=== PATIENT | male | born 1950 | race Caucasian/White ===

== ENCOUNTER 2019-02-21 14:54 | Emergency (ER) | payer OTHER ==
[2019-02-21] MEDS ORDERED: KETOROLAC TROMETHAMINE INJ 30 MG/ML VIAL IM ONE (15:26)
--- NOTE | 2019-02-21 16:02 | CT ---
EXAM DESCRIPTION: Abdoment/Pelvis w/o Contrast CLINICAL HISTORY: 68 years Male, rt lower flank pain 1 month COMPARISON: None. TECHNIQUE: CT of the abdomen and pelvis acquired without IV contrast material. Coronal and sagittal reformations provided. This exam was performed according to our departmental dose-optimization program, which includes automated exposure control, adjustment of the mA and/or kV according to patient size and/or use of iterative reconstruction technique. FINDINGS: Lung bases: Enlarged heart. Trace pericardial effusion anteriorly. Mild dependent atelectasis. Limited evaluation of the solid organs secondary to the lack of intravenous contrast. Solid Organs: Hypoattenuation of the liver. Unremarkable spleen, pancreas, gallbladder, and adrenal glands. Right renal cysts measuring 2.8 cm. Bilateral millimetric calcifications. No hydronephroureter. GI tract: Normal stomach. No small bowel obstruction. Scattered diverticula without pericolonic inflammation. Mild colonic stool. Normal appendix. Vascular: Mild atherosclerosis. Musculoskeletal and soft tissues: No acute fracture or aggressive appearing osseous lesion. Small fat-containing umbilical hernia. Urinary bladder: 4 mm stone in the dependent urinary bladder. Prostate: Normal. Other: None. IMPRESSION: 1. Bilateral nonobstructing renal stones. 2. 4 mm stone in the dependent urinary bladder. This likely represents recently passed renal stone. No hydronephroureter. 2. Diverticulosis. 5. Hepatic steatosis. Electronically signed by: Richard Iglesias MD 02/21/2019 4:00 PM CDT
--- NOTE | 2019-02-21 17:34 | ED.PDOC ---
History of Present Illness - General Chief Complaint: Back Pain or Injury Stated Complaint: right lower back/flank pain Time Seen by Provider: 02/21/19 15:26 Source: patient Exam Limitations: no limitations - History of Present Illness Initial Comments: The patient is a 68-year-old male presenting to emergency room secondary to right flank pain. It is worse with movement and palpation. He has had the pain for about 3 weeks but it got significantly worse this morning and is now a little bit better. No definite urinary symptoms. He reports that it feels exactly like it did when he had a kidney stone on the other side more than 10 years ago. No blood in the urine. no fever. He has had some constipation. No recent trauma. He does have some muscle spasm adjacent to L4-S1 on the right. No definite sciatica. No pain over the spinous processes.he did get diaphoretic and nauseated this morning when the pain was at its worst. Timing/Duration: other - 3 weeks Severity: severe Improving Factors: immobilization Worsening Factors: movement Associated Symptoms: denies symptoms Allergies/Adverse Reactions: Allergies Morphine Allergy (Verified 02/21/19 15:22) Home Medications: Ambulatory Orders Cyclobenzaprine HCl [Flexeril] 5 mg PO TID PRN #30 tab 02/21/19 Tramadol HCl 50 mg PO Q8HR PRN #20 tab 02/21/19 predniSONE [Prednisone] 20 mg PO DAILY #3 tab 02/21/19 Review of Systems - Review of Systems Constitutional: States: no symptoms reported EENTM: States: no symptoms reported Respiratory: States: no symptoms reported Cardiology: States: no symptoms reported Gastrointestinal/Abdominal: States: constipation Genitourinary: States: no symptoms reported Musculoskeletal: States: back pain Skin: States: no symptoms reported Neurological: States: no symptoms reported Endocrine: States: excessive sweating - this morning when the pain was at its worst All other Systems: No Change from Baseline Past Medical History (General) - Patient Medical History Hx Stroke: No Hx Congestive Heart Failure: No Hx Hypertension: Yes Hx Diabetes: Yes - Vaccination History Hx Influenza Vaccination: Yes Hx Pneumococcal Vaccination: Yes - Social History Hx Tobacco Use: No Family Medical History - Family History Father Family History: Unknown Living Status: Unknown Physical Exam - Physical Exam General Appearance: Alert, Other - uncomfortable Eye Exam: bilateral normal Ears, Nose, Throat: normal pharynx Respiratory: lungs clear, normal breath sounds, no respiratory distress, no accessory muscle use Cardiovascular/Chest: normal peripheral pulses, no edema, other - egular rate Peripheral Pulses: radial,right: 2+, radial,left: 2+ Gastrointestinal/Abdominal: non tender - obese, soft Rectal Exam: deferred Back Exam: no vertebral tenderness, CVA tenderness (R) - ee history of present illness Extremity: normal range of motion, non-tender, no calf tenderness, normal capi llary refill 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 There is definitely a musculoskeletal component as there is tenderness to palpation and some obvious muscle spasm. For this he is going to placed on 3 days of prednisone and will be written for a muscle relaxer and some tramadol for as needed use. He can also take Aleve 2 tablets twice a day for the next few days as well. He does need to do some stretches. He needs to keep himself well-hydrated. It is also possible that the patient may have just passed a kidney stone giving him some of the symptoms over the last few weeks. There was a 4 mm stone in the bladder that could correspond to that. No evidence of infection in the urine. no evidence of any current obstruction in the urinary tract. The patient needs to follow back up with his primary care doctor next week. ER warnings are given for any significant worsening. A heat pad may also prove beneficial. merary dotson [id number] - Results/Orders Results/Orders: CT scan of abdomen and pelvis shows mild cardiomegaly. No evidence of any acute infectious process. The patient has a 4 mm dependent stone in the bladder that could have recently passed into the bladder. No diverticulitis. No perinephric abscess. No obvious fractures seen. No acute pathology otherwise.He does have a fatty liver and some smaller renal cysts. See report for details. Laboratory Tests 02/21/19 15:30 Urine Color Yellow Urine Appearance Clear Urine pH 5.5 Ur Specific Melvin 1.025 Urine Protein Trace Urine Glucose (UA) Negative Urine Ketones Negative Urine Blood Negative Urine Nitrite Negative Urine Bilirubin Negative Urine Urobilinogen 0.2 Ur Leukocyte Esterase Negative Urine RBC 0-1 Urine WBC 0-1 Ur Epithelial Cells 0-1 Amorphous Sediment 1+ Urine Bacteria 0 Departure - Departure Clinical Impression: Low back pain Qualifiers: Chronicity: acute Back pain laterality: right Sciatica presence: without sciatica Qualified Code(s): M54.5 - Low back pain Disposition: Discharge to Home or Self Care Condition: Fair Departure Forms: ED Discharge - Pt. Copy, Patient Portal Self Enrollment Diet: regular diet Activity: increase activity as tolerated Prescriptions: Tramadol HCl 50 mg PO Q8HR PRN #20 tab PRN Reason: Moderate Pain Cyclobenzaprine HCl [Flexeril] 5 mg PO TID PRN #30 tab PRN Reason: Muscle Spasms predniSONE [Prednisone] 20 mg PO DAILY #3 tab Home Medications: Ambulatory Orders Cyclobenzaprine HCl [Flexeril] 5 mg PO TID PRN #30 tab 02/21/19 Tramadol HCl 50 mg PO Q8HR PRN #20 tab 02/21/19 predniSONE [Prednisone] 20 mg PO DAILY #3 tab 02/21/19 Additional Instructions: the patient is a 68-year-old male presenting with right lower flank pain present for the last several weeks but worse today. There is definitely a musculoskeletal component as there is tenderness to palpation and some obvious muscle spasm. For this he is going to placed on 3 days of prednisone and will be written for a muscle relaxer and some tramadol for as needed use. He can also take Aleve 2 tablets twice a day for the next few days as well. He does need to do some stretches. He needs to keep himself well-hydrated. It is also possible that the patient may have just passed a kidney stone giving him some of the symptoms over the last few weeks. There was a 4 mm stone in the bladder that could correspond to that. No evidence of infection in the urine. no evidence of any current obstruction in the urinary tract. The patient needs to follow back up with his primary care doctor next week. ER warnings are given for any significant worsening. A heat pad may also prove beneficial.
[2019-02-21] MEDS ORDERED: predniSONE 20 MG TAB PO ONE (17:44)
[2019-02-21] MEDS ORDERED: CYCLOBENZAPRINE HCL 10 MG TAB PO ONE (17:44)
[2019-02-21 18:03] VITALS: BP 92/78; TEMP 96.7; O2SAT 96
== END 2019-02-21 17:57 | disposition home or self-care (01) ==
LOC: ER 14:54
DX: M54.5 Low back pain (principal); R10.9 Unspecified abdominal pain; N21.0 Calculus in bladder; E11.9 Type 2 diabetes mellitus without complications; I10 Essential (primary) hypertension; Z88.5 Allergy status to narcotic agent
CPT/HCPCS: 74176; 81001; J1885; J7512

== ENCOUNTER 2020-03-03 13:50 | Inpatient (IN) | payer OTHER ==
--- NOTE | 2020-03-03 14:58 | ED.PDOC ---
History of Present Illness - General Chief Complaint: Trauma Stated Complaint: shoulder pain Time Seen by Provider: 03/03/20 14:38 Source: patient, RN notes reviewed, Vital Signs reviewed, family - daughter Exam Limitations: no limitations - History of Present Illness Initial Comments: Patient is a 69-year-old white male who presents status post fall yesterday with complaints of right shoulder and chest pain. Additionally, patient is complaining of left lower extremity redness, blistering and weeping. The shoulder pain is stabbing in nature. Worse with movement. No worsening pain with deep inspiration. There is no radiation of the pain. Patient's pain in the left lower leg is throbbing in nature, constant, moderate intensity worse with palpation and movement. Timing/Duration: other - 2 to 3 days Severity: moderate Improving Factors: rest Worsening Factors: movement Associated Symptoms: denies symptoms Allergies/Adverse Reactions: Allergies Morphine Allergy (Verified 03/03/20 15:11) Home Medications: Ambulatory Orders Cyclobenzaprine HCl [Flexeril] 5 mg PO TID PRN #30 tab 02/21/19 Tramadol HCl 50 mg PO Q8HR PRN #20 tab 02/21/19 predniSONE [Prednisone] 20 mg PO DAILY #3 tab 02/21/19 Review of Systems - Review of Systems Constitutional: States: see HPI, malaise. Denies: chills, fever, weakness EENTM: States: no symptoms reported. Denies: eye pain, blurred vision, double vision Respiratory: States: no symptoms reported. Denies: cough, short of breath, wheezing Cardiology: States: no symptoms reported, chest pain - Right-sided. Denies: palpitations, syncope Gastrointestinal/Abdominal: States: no symptoms reported. Denies: abdominal pain, constipation, diarrhea, nausea, vomiting Musculoskeletal: States: see HPI, other - Left lower extremity swelling, blistering and weeping. Skin: States: see HPI, change in color, other - Left lower extremity redness and blistering. Neurological: States: see HPI, weakness. Denies: headache, numbness, tremors Endocrine: States: see HPI, increased thirst. Denies: increased hunger, increased urine Hematologic/Lymphatic: States: no symptoms reported. Denies: blood clots, easy bleeding All other Systems: No Change from Baseline Past Medical History (General) - Patient Medical History Hx Stroke: No Hx Congestive Heart Failure: No Hx Hypertension: Yes Hx Diabetes: Yes - Vaccination History Hx Influenza Vaccination: Yes Hx Pneumococcal Vaccination: Yes - Social History Hx Tobacco Use: No Family Medical History - Family History Father Family History: Unknown Living Status: Unknown Physical Exam - Physical Exam General Appearance: Alert, Anxious, Obvious distress, Unkempt, Well Developed, Well Hydrated, Well Nourished Eye Exam: bilateral normal Ears, Nose, Throat: hearing grossly normal, normal ENT inspection, normal pharynx Neck: non-tender, full range of motion, supple, normal inspection Respiratory: lungs clear, normal breath sounds, no respiratory distress, no accessory muscle use, other - Tenderness to palpation of the right chest wall. No crepitus. Cardiovascular/Chest: normal peripheral pulses, regular rate, rhythm, no edema, no gallop, no JVD, no murmur Peripheral Pulses: radial,right: 2+, radial,left: 2+ Gastrointestinal/Abdominal: normal bowel sounds, non tender, soft, distended, other Back Exam: normal inspection, no CVA tenderness, no vertebral tenderness Extremity: normal range of motion, normal capillary refill, swelling - Left lower extremity with redness, blistering and swelling. 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 03/03/20 17:40 Patient's chest x-ray and EKG as well as lab work relatively unremarkable. There is no sign of acute ischemia for chest disease. Patient does have an elevated white count consistent with a cellulitis in the left lower extremity. Concern for DVT. Ultrasound is unavailable at this time of the evening. Plan on ultrasound in the morning. I discussed this patient with Mayo Prado NP, and he accepts patient for admission. I discussed this plan of care with the patient and his daughter and they voiced understanding and agreement with the plan of care. Cristhian Cain M.D. #[id number] - Results/Orders Results/Orders: EXAM DESCRIPTION: Chest,1 View CLINICAL HISTORY: right sided chestpain COM PARISON: None available FINDINGS: The left phrenic angles excluded. The cardiac silhouette is enlarged. No airspace consolidation or pleural effusion. The bronchovascular markings are within normal limits, and the lungs are not hyperinflated. There is no pneumothorax or acute fracture. IMPRESSION: Cardiomegaly, otherwise unremarkable exam. Slightly limited as detailed above. Electronically signed by: Dmitri Issa MD 03/03/2020 3:18 PM CDT EKG performed on 03 March 2020 at 1501 hrs.: Normal sinus rhythm at 90 bpm, normal axis deviation, possible anterior infarct, age indeterminate, abnormal EKG. No prior EKG available for comparison at this time. 03/03/20 14:38 IV Care:Saline Lock per Protoc QSHIFT Telemetry ONCE Sodium Chloride 0.9% (Flush) [Saline Flush Syringe] 3 ml IV PRN PRN URINALYSIS Stat 03/03/20 14:45 EKG STAT 03/03/20 15:04 BLOOD CULTURE Stat 03/04/20 09:00 Pulse Ox Daily Laboratory Results - last 24 hr 03/03/20 15:04 WBC 15.0 H RBC 4.72 Hgb 14.1 Hct 42.2 MCV 89.4 MCH 30.0 MCHC 33.5 RDW 15.2 H Plt Count 191 MPV 8.4 Absolute Neuts (auto) 13.50 H Absolute Lymphs (auto) 0.60 L Absolute Monos (auto) 0.90 H Absolute Eos (auto) 0.00 Absolute Basos (auto) 0.00 Neutrophils % 90.2 H Lymphocytes % 3.7 L Monocytes % 5.7 Eosinophils % 0.3 L Basophils % 0.1 PT 10.6 INR 1.07 PTT (SP) 33.7 H Sodium 135 Potassium 3.6 Chloride 99 L Carbon Dioxide 24 Anion Gap 15.6 BUN 39 H Creatinine 1.71 H BUN/Creatinine Ratio 22.8 H Random Glucose 167 H Serum Osmolality 283.3 Calcium 8.4 Magnesium 1.9 Total Bilirubin 1.2 H Direct Bilirubin 0.3 H Indirect Bilirubin 0.9 H AST 28 ALT 32 Alkaline Phosphatase 64 Creatine Kinase 81 CK-MB (CK-2) 4.5 H CK-MB (CK-2) % Not Reportable Troponin I 0.05 B-Natriuretic Peptide 67.8 Serum Total Protein 7.4 Albumin 3.4 Vital Signs 03/03/20 03/03/20 15:08 15:10 Temperature 99.6 F Pulse Rate [ 95 H brachial] Respiratory 105 H Rate Blood Pressure 159/105 [Left Arm] O2 Sat by Pulse 93 L 93 L Oximetry Departure - Departure Clinical Impression: Cellulitis of left lower extremity, Morbid obesity Leukocytosis Qualifiers: Leukocytosis type: unspecified Qualified Code(s): D72.829 - Elevated white blood cell count, unspecified Time of Disposition: 17:50 Disposition: Admit Patient Condition: Fair Departure Forms: ED Discharge - Pt. Copy, Patient Portal Self Enrollment Instructions: DI for Trauma Diet: resume usual diet Activity: increase activity as tolerated Home Medications: Ambulatory Orders Cyclobenzaprine HCl [Flexeril] 5 mg PO TID PRN #30 tab 02/21/19 Tramadol HCl 50 mg PO Q8HR PRN #20 tab 02/21/19 predniSONE [Prednisone] 20 mg PO DAILY #3 tab 02/21/19 Decision To Admit - Decistion To Admit Decision to Admit Date: 03/03/20 Decision to Admit Time: 17:15
--- NOTE | 2020-03-03 15:20 | RAD ---
EXAM DESCRIPTION: Chest,1 View CLINICAL HISTORY: right sided chestpain COMPARISON: None available FINDINGS: The left phrenic angles excluded. The cardiac silhouette is enlarged. No airspace consolidation or pleural effusion. The bronchovascular markings are within normal limits, and the lungs are not hyperinflated. There is no pneumothorax or acute fracture. IMPRESSION: Cardiomegaly, otherwise unremarkable exam. Slightly limited as detailed above. Electronically signed by: Dmitri Issa MD 03/03/2020 3:18 PM CDT
[2020-03-03] MEDS: SODIUM CHLORIDE 0.9% (FLUSH) 10 ML SYG IV PRN (15:51)
[2020-03-03] MEDS ORDERED: cefTRIAXone SODIUM 1 GM in SODIUM CHL 0.9% 50ML MIN-BAG+ 50 ML IVPB ONE (17:51)
--- NOTE | 2020-03-03 17:58 | HP ---
SUPERVISING PHYSICIAN: Juan Yo MD CHIEF COMPLAINT: Shoulder pain and left lower leg pain. HISTORY OF PRESENT ILLNESS: Mr. Garcia is a 69-year-old male patient with a history of hypertension, diabetes that presented to the Emergency Room after he sustained a fall yesterday on 03/02/20 with complaints of right shoulder pain and left lower extremity redness, blistering and weeping. His right shoulder pain is worse with movement. He denies any shortness of breath associated with it. He endorses he fell on Sunday of this past week trying to go to the bathroom and landed on his right side. He is unsure if he hit his left leg on something, but since then, his left leg has been reddened and swollen with blisters. He does also endorse that on Sunday, he ate at [employer] and shortly after eating there, he got sick and felt like he got some food poisoning. He has not had any significant GI symptoms since he fell. He was seen in the walk-in clinic at [place] and then was referred to the Emergency Room for further evaluation. His chest x-ray showed cardiomegaly, but otherwise unremarkable exam. Labs he did have a white count of 15,000 with a left shift. Coagulation studies showed normal PT, PTT. Chemistries creatinine a little elevated at 1.71, bilirubin elevated at 1.2. C-reactive protein 30.4. Given the degree of cellulitis, swelling, the ER physician requested the patient be admitted for initiation of IV antibiotics including vancomycin and further evaluation of his lower extremity for possible DVT. The patient was placed on observation in stable condition. PAST MEDICAL HISTORY: 1. Diabetes mellitus, type 2. 2. Hypertension. 3. Sleep apnea on CPAP. PAST SURGICAL HISTORY: 1. Neck surgery as a young man. 2. Multiple kidney stones with back surgery. MEDICATIONS: We are awaiting an updated list of home medications as the patient does not have knowledge of his medications. ALLERGIES: MORPHINE. FAMILY HISTORY: Noncontributory. 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 He is . He does not have a history of smoking or using tobacco of any sort, drinking alcohol or using illicit drugs. REVIEW OF SYSTEMS: CONSTITUTIONAL: Positive for general malaise. Negative for any fevers, chills or weakness. HEENT: Negative for sore throats, earaches, nasal congestion, vision changes. RESPIRATORY: Negative for coughing, wheezing or shortness of breath. CARDIOVASCULAR: Negative for chest pain, just chest wall pain that is reproducible with movement. Negative for palpitations or syncopal episodes. GASTROINTESTINAL: Negative for nausea, vomiting, diarrhea, constipation or abdominal pain. MUSCULOSKELETAL: As noted in history of present illness, left lower extremity with swelling, blistering and weeping. SKIN: As noted in history of present illness, left lower extremity redness and blistering. NEUROLOGIC: Positive for weakness. Denies ataxia, seizures, headaches, tremors, other focal deficits. HEMATOLOGIC: Negative for easy bruising, unexplained bleeding or transfusion reactions. PHYSICAL EXAMINATION: VITAL SIGNS: On admission, temperature 99.6, pulse 95, blood pressure initially 159/105, tachypneic at 23, O2 saturation 93% on room air, blood pressure 159/105. After admission to the Medical/Surgical Floor, the patient was afebrile with temperature 98.8, pulse 96, blood pressure 145/78, respirations 16, saturation 98% on 2 liters nasal cannula at rest. GENERAL: The patient is resting comfortably, does not appear to be in any acute distress. He looks well-hydrated, well-nourished. He is obese. HEENT: Tympanic membranes clear bilaterally. Oropharynx is pink, moist without any lesions. NECK: Supple, nontender with full range of motion. No jugular venous distention noted. RESPIRATORY: Lung sounds are clear to auscultation bilaterally without any rhonchi, wheezes or rales. CHEST: There is mild tenderness over the right sided chest wall with no crepitus. Chest wall excursions equal bilaterally. CARDIOVASCULAR: Regular rate and rhythm without any appreciable murmurs, gallops, or rubs. ABDOMEN: Soft, nontender. Positive bowel sounds. Obese. BACK: No CVA or vertebral tenderness. EXTREMITIES: The left lower extremity shows swelling compared to the right leg with redness extending up to just below the patella region with multiple blisters, redness and weeping. Pulses 1+ bilaterally. NEUROLOGIC: Cranial nerves II-XII are grossly intact. Facial features are symmetrical. Extraocular movements are within normal limits. There is no nystagmus noted. The patient is alert and oriented times three. SKIN: Warm, pink and dry. LABORATORY: CBC showed white count 15,000, hemoglobin 14.1, hematocrit 42.2, platelet count 191,000. Differential does show a left shift. Coagulation studies showed normal PT, PTT. Chemistries showed normal electrolytes with creatinine 1.71. Bilirubin a little elevated at 1.2. Lactic acid 1.2. Other liver functions were within normal limits. Troponin 0.05. He did have C- reactive protein that was 30.4. Urinalysis showed 100 protein, moderate amount of blood, small amount of bilirubin. Microscopic revealed 5 to 10 RBCs, 1+ bacteria, 3+ amorphus. MICROBIOLOGY: Blood culture pending. RADIOLOGY: Tib-fib x-rays and lower extremity Doppler studies are pending. ASSESSMENT: 1. Cellulitis of the left lower extremity, cannot rule out deep venous thrombosis with pending ultrasound and x-rays to rule out occult fracture. 2. Right sided chest wall status post fall with no acute findings on x-ray. 3. Acute kidney injury, likely prerenal azotemia with some mild dehydration. 4. History of diabetes mellitus, type 2. 5. Hypertension. 6. Sleep apnea on CPAP. PLAN: Mr. Garcia is going to be placed in observation. We will start him on vancomycin and Rocephin for the cellulitis of the left lower extremity. We will get Doppler studies in the morning as well as x-ray. We will resume his home medications once updated and verified. We will put him on insulin sliding scale per protocol. He will be on DVT prophylaxis per protocol. I anticipate his length of stay to be at least 1 to 2 days, possibly longer depending on how well he does in regards to initiation of parenteral antibiotics. Until the patient can transition to outpatient management, we will continue to monitor and treat as needed. #[id number] [facility]
[2020-03-03] MEDS: VANCOMYCIN HCL INJ 1,500 MG in SODIUM CHLORIDE 0.9% 500ML 500 ML IVPB SCH (19:27)
[2020-03-03] MEDS: ONDANSETRON INJ 4 MG/2 ML VIAL IV PRN (20:25)
[2020-03-04] MEDS ORDERED: SODIUM CHLORIDE 0.9% (FLUSH) 10 ML SYG IV PRN (00:10)
[2020-03-04] MEDS ORDERED: ONDANSETRON INJ 4 MG/2 ML VIAL IV PRN (00:10)
[2020-03-04] MEDS: IV SET AND CAP CHANGE INJ INJ SCH (01:24)
[2020-03-04] MEDS ORDERED: VANCOMYCIN HCL INJ 500 MG VIAL ONE (06:07)
[2020-03-04] MEDS: VANCOMYCIN HCL INJ 1,500 MG in SODIUM CHLORIDE 0.9% 500ML 500 ML IVPB SCH (06:10)
--- NOTE | 2020-03-04 07:07 | RAD ---
LEFT TIBIA AND FIBULA, TWO VIEWS, XR. CLINICAL HISTORY: Pain after fall. COMPARISON: None. TECHNIQUE: AP and lateral left tibia and fibula. FINDINGS: Mild degenerative change along the medial and lateral tibiofemoral bony hypertrophy along the medial and lateral femoral condyle. There is no fracture within the left tibia or fibula. There is no lytic or sclerotic bone lesion. Bony alignment is anatomic. There is diffuse marked soft tissue edema. No subcutaneous emphysema or foreign body. IMPRESSION: 1. Generalized left leg subcutaneous edema. No acute bony finding. 2. Left knee osteoarthritis. Electronically signed by: Meera Vazquez DO 03/04/2020 7:05 AM CDT
[2020-03-04] MEDS ORDERED: VANCOMYCIN PER PHARMACY IVPB SCH (08:00)
[2020-03-04] MEDS: ENOXAPARIN SODIUM 40 MG/0.4 ML SYG SUBCU SCH (08:58)
--- NOTE | 2020-03-04 12:16 | US ---
EXAM DESCRIPTION: Venous,Lower Extremity LT: ULTRASOUND. CLINICAL HISTORY: edema with cellulitis. Left lower Extremity. COMPARISON: None Available. TECHNIQUE: Mclaughlin-scale and doppler sonographic evaluation of the deep venous system of the left lower extremity. FINDINGS: Doppler evaluation shows normal color flow and normal phasicity and augmentation of the left common femoral vein, left femoral vein, popliteal vein, left greater saphenous vein, junction with the CFV. Also normal color flow and normal phasicity and augmentation of the peroneal, and posterior tibial vein. The left lower extremity deep veins were completely compressible; normal occlusion with transducer pressure. Mclaughlin-scale survey showed no echogenic thrombus within these veins. IMPRESSION: 1. Duplex ultrasound evaluation of the left lower extremity deep venous system showing no evidence of thrombosis. Electronically signed by: Richardson García MD 03/04/2020 12:14 PM CDT
[2020-03-04] MEDS: ACETAMINOPHEN 325 MG TAB PO PRN ×2 (12:24→21:04)
[2020-03-04] MEDS: cefTRIAXone SODIUM 1 GM in SODIUM CHL 0.9% 50ML MIN-BAG+ 50 ML IVPB SCH (16:28)
[2020-03-04] MEDS ORDERED: VANCOMYCIN HCL INJ 1,000 MG VIAL IVPB ONE (19:27)
[2020-03-04] MEDS ORDERED: SODIUM CHLORIDE 0.9% 500ML 500 ML ONE (19:28)
[2020-03-04] MEDS: VANCOMYCIN HCL INJ 2,000 MG in SODIUM CHLORIDE 0.9% 500ML 500 ML IVPB SCH (20:58)
[2020-03-04] MEDS ORDERED: diphenhydrAMINE HCL 25 MG CAP ONE (21:01)
[2020-03-04] MEDS ORDERED: diphenhydrAMINE HCL 25 MG CAP PO ONE (21:06)
[2020-03-05] MEDS: traMADol HCL 50 MG TAB PO PRN (02:13)
[2020-03-05] MEDS: ENOXAPARIN SODIUM 40 MG/0.4 ML SYG SUBCU SCH (08:14)
[2020-03-05] MEDS ORDERED: GABAPENTIN 300 MG CAP PO SCH (09:00)
--- NOTE | 2020-03-05 09:07 | PN ---
SUPERVISING PHYSICIAN: Juan Yo MD DATE: 03/04/20 SUBJECTIVE: The patient notes he is feeling a little bit better today. He is not having any nausea. He is able to eat. His leg is still swollen, but he is not having any major significant pain. Of note, though, is he has had several workups positive for gram positive cocci. Otherwise, he remains afebrile and stable. OBJECTIVE: VITAL SIGNS: Temperature 98.2, pulse 87, blood pressure 165/83, respirations 16, O2 saturation 96% on room air. GENERAL: The patient is resting comfortable. His is at bedside. He is not in any distress. CHEST: Lung sounds are fairly diminished, but he has a large body size. I do not hear any rales, rhonchi or wheezing. HEART: Heart sounds are diminished, but sounded regular rate. No notable murmurs. ABDOMEN: Obese, but soft and nontender. Positive bowel sounds. EXTREMITIES: The left lower extremity shows swelling compared to the right leg with redness extending up to just below the patella region with multiple blisters, redness and weeping. Pulses 1+ bilaterally. NEUROLOGIC: Alert and oriented times three. LABORATORY: White count today 14,800, hemoglobin 13.4, hematocrit 39.2, platelet count 182,000. Differential does show a left shift, but no bands. Chemistries today show potassium 3.4, BUN down to 32, creatinine down to 1.37. Blood sugars range between 118 and 151. Bilirubin 1.2, calcium 8.1, C-reactive protein elevated at 30.4. Urinalysis shows 5 to 10 RBCs, moderate amount of blood, small amount of bilirubin, 100 of protein. MICROBIOLOGY: Blood cultures are showing anaerobic bottles with gram positive cocci in all bottles at 24 hours. RADIOLOGY: Tib-fib x-ray this morning with no acute fractures noted. He also had a lower extremity Doppler of the left leg with no DVT noted. ASSESSMENT: 1. Gram positive cocci bacteremia, likely secondary to the left lower extremity cellulitis with resultant bacteremia with no deep venous thrombosis seen on exam, no fractures with the patient currently on parenteral antibiotics including vancomycin and Rocephin. 2. History of diabetes mellitus, type 2. 3. Hypertension. 4. Sleep apnea on CPAP. PLAN: We will continue with current plan of care with continuation of vancomycin and Rocephin given that he does have the cellulitis with gram positive cocci bacteremia awaiting those cultures results for further targeting of antibiotic therapy. He will need physical therapy as soon as he is able to get up on that leg. I am encouraging him to keep it elevated. We will follow his labs. I will order echocardiogram on him in the morning given that he does have a gram positive cocci. I anticipate length of stay to be at least another 24 to 48 hours until we can transition him to either continued IV antibiotics as an outpatient and he stabilizes and that leg shows improvement or we can transition him to oral medications. He will certainly need to be followed up with Infectious Disease especially in regards to the final culture results. He has not seen anybody in any local clinics since July, I believe, other than he went to the walk-in clinic for his leg yesterday. [facility] and is going to see about getting followed up on discharge. He is on DVT prophylaxis. Until the patient can transition to outpatient management, we will continue to monitor and treat as needed. #[id number] [facility]ENTER[facility]or[facility]
--- NOTE | 2020-03-05 14:40 | CT ---
EXAM DESCRIPTION: Head CLINICAL HISTORY: head pain COMPARISON: None TECHNIQUE: Noncontrast transaxial CT images of the head are obtained from base to vertex. This exam was performed according to our departmental dose-optimization program, which includes automated exposure control, adjustment of the mA and/or kV according to patient size and/or use of iterative reconstruction technique. FINDINGS: The midline structures are not displaced. Sulci are age-appropriate. There are areas of decreased attenuation in the periventricular white matter and the white matter of the centrum semiovale. There is no evidence of mass, mass-effect, hydrocephalus, or acute intracranial hemorrhage. No abnormal extra axial fluid collection is seen. Bone windows show no evidence of depressed skull fracture. The visualized paranasal sinuses shows mild mucosal thickening in the ethmoid air cells. Mild calcifications of the intracranial carotid arteries are seen.. IMPRESSION: 1. Age-appropriate atrophy with evidence of old small vessel ischemic type changes seen. 2. No acute abnormality is seen on noncontrast CT of the head. Electronically signed by: Pepe Robles MD 03/05/2020 2:38 PM CDT
[2020-03-05] MEDS: GABAPENTIN 300 MG CAP PO SCH ×2 (15:40→20:55)
--- NOTE | 2020-03-05 17:08 | PN ---
SUPERVISING PHYSICIAN: Juan Yo MD DATE: 03/05/20 SUBJECTIVE: The patient is sitting up in his chair. He complains of right sided head pain that is new onset. It only started today. It is to be noted that he had a fall two days prior to his admission. At that time, he did not think he hit his head, but he did land on the right side and he does not remember. He denies chest pain or shortness of breath. OBJECTIVE: VITAL SIGNS: Temperature 97.9, heart rate 83, blood pressure 176/94, respiratory rate 16, O2 saturation 96% on room air. RESPIRATORY: Essentially clear to auscultation bilaterally. CARDIAC: Regular rate and rhythm. EXTREMITIES: His left lower extremity is wrapped in Kerlix and is somewhat worse swollen than the other leg, but bilateral pedal pulses are +2. NEUROLOGIC: Awake, alert and oriented times three. Pupils are equal and reactive. Bilateral hand apiarist are equal. His face is symmetrical. LABORATORY: WBCs 12,200, hemoglobin 13.5, hematocrit 39.4. Electrolytes are within normal limits with the exception of his calcium is slightly low at 8.2. Creatinine 1.37. Preliminary blood cultures show 4/4 positive blood cultures for gram positive cocci. Head CT shows 1) Age appropriate atrophy with evidence of old small vessel ischemic type changes seen. 2) No acute abnormality seen on noncontrast CT of the head. All other labs and films have been reviewed via the EMR. ASSESSMENT: 1. Gram positive cocci bacteremia, likely secondary to the left lower extremity cellulitis with resultant bacteremia with no deep venous thrombosis seen on exam, no fractures with the patient currently on parenteral antibiotics including vancomycin and Rocephin. 2. History of diabetes mellitus, type 2. 3. Hypertension. 4. Sleep apnea on CPAP. PLAN: We will continue present supportive care. We will monitor his blood cultures and sensitivities as soon as they become available. I have ordered lab including CRP for tomorrow. [employer] Manager have given him information on [facility] and hopefully he can establish care with Dr. Morse. We will continue to keep the left leg elevated and once the sensitivities are back, we can consult with Dr. Butler for recommendations on treatment as well as length of treatment. [facility][id number] [facility]
[2020-03-05] MEDS: cefTRIAXone SODIUM 1 GM in SODIUM CHL 0.9% 50ML MIN-BAG+ 50 ML IVPB SCH (17:32)
[2020-03-05] MEDS: VANCOMYCIN HCL INJ 2,000 MG in SODIUM CHLORIDE 0.9% 500ML 500 ML IVPB SCH (20:53)
[2020-03-05] MEDS: NIACIN 500 MG TAB PO SCH (20:55)
[2020-03-05] MEDS: LISINOPRIL 10 MG TAB PO SCH (20:55)
[2020-03-05] MEDS: TAMSULOSIN 0.4 MG CAP PO SCH (20:56)
[2020-03-05] MEDS: SIMVASTATIN 20 MG TAB PO SCH (20:56)
[2020-03-05] MEDS: metFORMIN HCL 500 MG TAB PO SCH (20:56)
[2020-03-05] MEDS: guaiFENesin ER TAB 600 MG TAB PO SCH (20:56)
[2020-03-05] MEDS ORDERED: METFORMIN HCL 1000 MG PO SCH (21:00)
[2020-03-05] MEDS ORDERED: NIACIN 500 MG PO SCH (21:00)
[2020-03-05] MEDS ORDERED: SIMVASTATIN 20 MG PO SCH (21:00)
[2020-03-05] MEDS ORDERED: GUAIFENESIN 600 MG PO SCH (21:00)
[2020-03-05] MEDS ORDERED: NON-FORMULARY MEDICATION 1 EA MIS (Lisinopril [Lisinopril] 10 MG) PO SCH (21:00)
[2020-03-06] MEDS ORDERED: LEVOTHYROXINE SODIUM 0.1 MG TAB ONE (04:51)
[2020-03-06] MEDS: traMADol HCL 50 MG TAB PO PRN (04:52)
[2020-03-06] MEDS: LEVOTHYROXINE SODIUM 0.1 MG TAB PO SCH (06:26)
[2020-03-06] MEDS ORDERED: CETIRIZINE HCL 10 MG TAB PO ONE (06:44)
[2020-03-06] MEDS ORDERED: ASPIRIN (CHEWABLE) 81 MG TAB ONE (06:44)
[2020-03-06] MEDS ORDERED: METOPROLOL TARTRATE 50 MG TAB ONE (06:44)
[2020-03-06] MEDS: ASPIRIN (CHEWABLE) 81 MG TAB PO SCH (08:57)
[2020-03-06] MEDS: guaiFENesin ER TAB 600 MG TAB PO SCH ×2 (08:57→20:33)
[2020-03-06] MEDS: NIACIN 500 MG TAB PO SCH ×2 (08:57→20:33)
[2020-03-06] MEDS: metFORMIN HCL 500 MG TAB PO SCH ×2 (08:58→20:33)
[2020-03-06] MEDS: CETIRIZINE HCL 10 MG TAB PO SCH (08:58)
[2020-03-06] MEDS: GABAPENTIN 300 MG CAP PO SCH ×3 (08:58→20:33)
[2020-03-06] MEDS: LISINOPRIL 10 MG TAB PO SCH ×2 (08:58→20:33)
[2020-03-06] MEDS: METOPROLOL TARTRATE 50 MG TAB PO SCH (08:58)
[2020-03-06] MEDS: ENOXAPARIN SODIUM 40 MG/0.4 ML SYG SUBCU SCH (08:59)
[2020-03-06] MEDS: SODIUM CHLORIDE 0.9% (FLUSH) 10 ML SYG IV PRN (08:59)
[2020-03-06] MEDS ORDERED: NON-FORMULARY MEDICATION 1 EA MIS (Metoprolol Tartrate [Metoprolol Tartrate] 100 MG) PO SCH (09:00)
[2020-03-06] MEDS: cefTRIAXone SODIUM 1 GM in SODIUM CHL 0.9% 50ML MIN-BAG+ 50 ML IVPB SCH (16:23)
--- NOTE | 2020-03-06 19:12 | PN ---
SUPERVISING PHYSICIAN: Juan Yo M.D. DATE: 03/06/20 SUBJECTIVE: The patient is sitting on the side of the bed. He had just been in his chair. He says his leg is feeling much better. It is actually unwrapped at this time. Denies nausea, vomiting, constipation or diarrhea. OBJECTIVE: VITAL SIGNS: Temperature 98.2, heart rate 73, blood pressure 146/79, respiratory rate 16, O2 saturation 95% on room air. RESPIRATORY: Essentially clear to auscultation bilaterally. CARDIAC: Regular rate and rhythm. EXTREMITIES: Bilateral pedal pulses are +2. Left lower extremity shows erythema from just distal to the knee to just proximal to the ankle. There are several areas of blisters and he has +2 swelling edema. Some of the blisters are draining serous type fluid. The markings from prior exam showed that the swelling and erythema have improved. NEUROLOGIC: He is awake, alert and oriented times three. LABORATORY: WBCs are 10.9 with hemoglobin 13.3, hematocrit 38.7. Electrolytes are basically within normal limits with the exception of his calcium is slightly low at 8.1. C reactive protein is 22.2. Blood sugars have run between 114 and 176. BUN 29, creatinine 1.41. MICROBIOLOGY: Four out of 4 blood cultures show Streptococcus dysgalactiae SSP in all 4 cultures. There is no resistance known to Penicillin or vancomycin per the laboratory results. Echocardiogram shows: 1. Moderate concentric left ventricular hypertrophy. 2. Grade 1 diastolic dysfunction consistent with impaired relaxation and normal filling pressures. 3. There is trivial posterior paracardial effusion. 4. There is mild right ventricular hypertrophy. 5. Mild right ventricular dilatation. 6. Mildly elevated estimated right ventricular systolic pressure. All other labs and films have been reviewed via the EMR. ASSESSMENT: 1. Left lower extremity cellulitis with blood cultures showing Streptococcus dysgalactiae. 2. History of diabetes mellitus, type 2. 3. Hypertension. 4. Sleep apnea on CPAP. PLAN: We will continue present supportive care. Will need to call Dr. Butler on Sunday to get her recommendations for length of treatment. I will hold on lab tomorrow but I have ordered it for Sunday, including a CRP. He is calling Sunday to get his [facility] benefits clarified so he can see Dr. Morse. Will continue to monitor closely and follow as needed.. [facility][id number] [facility]
[2020-03-06] MEDS: SIMVASTATIN 20 MG TAB PO SCH (20:33)
[2020-03-06] MEDS: TAMSULOSIN 0.4 MG CAP PO SCH (20:33)
[2020-03-06] MEDS: VANCOMYCIN HCL INJ 2,000 MG in SODIUM CHLORIDE 0.9% 500ML 500 ML IVPB SCH (20:34)
[2020-03-06] MEDS ORDERED: diphenhydrAMINE HCL 25 MG CAP PO ONE (22:05)
[2020-03-07] MEDS: IV SET AND CAP CHANGE INJ INJ SCH (01:03)
[2020-03-07] MEDS: LEVOTHYROXINE SODIUM 0.1 MG TAB PO SCH (06:16)
[2020-03-07] MEDS: traMADol HCL 50 MG TAB PO PRN (08:50)
[2020-03-07] MEDS: ASPIRIN (CHEWABLE) 81 MG TAB PO SCH (08:53)
[2020-03-07] MEDS: METOPROLOL TARTRATE 50 MG TAB PO SCH (08:54)
[2020-03-07] MEDS: metFORMIN HCL 500 MG TAB PO SCH ×2 (08:54→20:27)
[2020-03-07] MEDS: guaiFENesin ER TAB 600 MG TAB PO SCH ×2 (08:55→20:27)
[2020-03-07] MEDS: ENOXAPARIN SODIUM 40 MG/0.4 ML SYG SUBCU SCH (08:55)
[2020-03-07] MEDS: GABAPENTIN 300 MG CAP PO SCH ×3 (08:56→20:27)
[2020-03-07] MEDS: LISINOPRIL 10 MG TAB PO SCH ×2 (08:56→20:27)
[2020-03-07] MEDS: NIACIN 500 MG TAB PO SCH ×2 (08:56→20:27)
[2020-03-07] MEDS: CETIRIZINE HCL 10 MG TAB PO SCH (08:56)
[2020-03-07] MEDS: cefTRIAXone SODIUM 1 GM in SODIUM CHL 0.9% 50ML MIN-BAG+ 50 ML IVPB SCH (17:52)
[2020-03-07] MEDS ORDERED: GABAPENTIN 300 MG CAP ONE (19:01)
[2020-03-07] MEDS ORDERED: diphenhydrAMINE HCL 25 MG CAP ONE (19:02)
--- NOTE | 2020-03-07 19:23 | PN ---
SUPERVISING PHYSICIAN: Juan Yo M.D. DATE: 03/07/20 SUBJECTIVE: The patient is sitting up in his chair. He said he feels about the same and his leg still hurts quite a bit. He does have it elevated. He denies chest pain or shortness of breath. No nausea or constipation. OBJECTIVE: VITAL SIGNS: Temperature 97.5, heart rate 78, blood pressure 167/83, respiratory rate 16, O2 saturation 95% on room air. RESPIRATORY: Essentially clear to auscultation bilaterally. CARDIAC: Regular rate and rhythm. EXTREMITIES: His left leg is slightly more edematous around the foot than it was yesterday, but he said had his foot down quite a bit yesterday. He continues to have erythema with swelling and blisters with serous fluid from just distal to the knee proximal to the ankle. It is circumferential. It has slightly improved since yesterday. NEUROLOGIC: He is awake, alert and oriented times three. LABORATORY: Blood sugars have run between 114 and 189. All other labs and films have been reviewed via the EMR. ASSESSMENT: 1. Left lower extremity cellulitis with blood cultures showing Streptococcus dysgalactiae. 2. History of diabetes mellitus, type 2. 3. Hypertension. 4. Sleep apnea on CPAP. PLAN: We will continue present supportive care, including the Rocephin and Vancomycin. Will need to call Dr. Butler on Sunday to get her recommendations on length of treatment and if there is a possibility for him to go home on some oral medications. I have ordered lab for in the morning, including a CRP. On Sunday, he is calling the [facility] to change his benefits so he can see Dr. Morse. We will base our discharge on Dr. Butler's recommendations. #[id number] [facility]
[2020-03-07] MEDS: TAMSULOSIN 0.4 MG CAP PO SCH (20:26)
[2020-03-07] MEDS: ACETAMINOPHEN 325 MG TAB PO PRN (20:26)
[2020-03-07] MEDS: diphenhydrAMINE HCL 25 MG CAP PO PRN (20:26)
[2020-03-07] MEDS: SIMVASTATIN 20 MG TAB PO SCH (20:27)
[2020-03-07] MEDS: ONDANSETRON INJ 4 MG/2 ML VIAL IV PRN (20:33)
[2020-03-07] MEDS: VANCOMYCIN HCL INJ 2,000 MG in SODIUM CHLORIDE 0.9% 500ML 500 ML IVPB SCH (20:38)
[2020-03-08] MEDS ORDERED: PROMETHAZINE HCL INJ 25 MG/ML VIAL ONE (01:05)
[2020-03-08] MEDS ORDERED: SODIUM CHLORIDE 0.9% 50ML 50 ML ONE (01:06)
[2020-03-08] MEDS: PROMETHAZINE HCL INJ 25 MG in SODIUM CHLORIDE 0.9% 50ML 50 ML IVPB PRN (01:09)
[2020-03-08] MEDS: LEVOTHYROXINE SODIUM 0.1 MG TAB PO SCH (06:05)
[2020-03-08] MEDS: ENOXAPARIN SODIUM 40 MG/0.4 ML SYG SUBCU SCH (08:08)
[2020-03-08] MEDS: METOPROLOL TARTRATE 50 MG TAB PO SCH (08:09)
[2020-03-08] MEDS: NIACIN 500 MG TAB PO SCH ×2 (08:09→20:52)
[2020-03-08] MEDS: GABAPENTIN 300 MG CAP PO SCH ×3 (08:09→20:52)
[2020-03-08] MEDS: metFORMIN HCL 500 MG TAB PO SCH ×2 (08:09→20:52)
[2020-03-08] MEDS: guaiFENesin ER TAB 600 MG TAB PO SCH ×2 (08:10→20:53)
[2020-03-08] MEDS: ASPIRIN (CHEWABLE) 81 MG TAB PO SCH (08:10)
[2020-03-08] MEDS: LISINOPRIL 10 MG TAB PO SCH ×2 (08:10→20:53)
[2020-03-08] MEDS: CETIRIZINE HCL 10 MG TAB PO SCH (08:10)
--- NOTE | 2020-03-08 14:28 | PN ---
SUPERVISING PHYSICIAN: Carlos Scott MD DATE: 03/08/20 SUBJECTIVE: The patient states he feels like the cellulitis is a little bit better, but is not quite sure. Otherwise, he is not really having any complaints. OBJECTIVE: VITAL SIGNS: Blood pressure 162/88, heart rate 83, respiratory rate 16, temperature 98.4, oxygen saturation 93%. GENERAL: Mr. Garcia is a 69-year-old male patient who is in no active distress currently. NEUROLOGIC: The patient is alert. LUNGS: Clear to auscultation bilaterally. CARDIOVASCULAR: Regular rate and rhythm. Normal S1, S2. ABDOMEN: Soft, obese. Positive bowel sounds. EXTREMITIES: Lower extremities with positive edema, left greater than right, with noted cellulitis. There are also areas where blisters have ruptured. There is a slight recession of the erythema from the borders that were marked. LABORATORY: White count 13,000, hemoglobin 13.1, hematocrit 39.2, platelet count 268. BUN 31, creatinine 1.36. Glucose 206. He did have an echocardiogram already on Sunday which showed normal left ventricular size and function, mild concentric left ventricular hypertrophy with ejection fraction 65-70%. No evidence of valvular dysfunction. ASSESSMENT: 1. Left lower extremity cellulitis. 2. Streptococcus dysgalactiae bacteremia. 3. History of diabetes mellitus, type 2. 4. Hypertension. 5. Obstructive sleep apnea on CPAP. PLAN: I spoke with Dr. Butler in [place] regarding the patient and she instructed to discontinue the vancomycin and continue with the Rocephin. The patient will need a total of 2 weeks of Rocephin given the bacteremia, so we will continue to monitor him today and try to set up outpatient Rocephin infusions to complete a 14-day course of therapy. The cellulitis is slow to improve, so we will reevaluate for tomorrow. #[id number] [facility]
[2020-03-08] MEDS ORDERED: LOPERAMIDE CAP 2 MG CAP PO ONE (15:59)
[2020-03-08] MEDS: ONDANSETRON INJ 4 MG/2 ML VIAL IV PRN (16:01)
[2020-03-08] MEDS: cefTRIAXone SODIUM 1 GM in SODIUM CHL 0.9% 50ML MIN-BAG+ 50 ML IVPB SCH (16:10)
[2020-03-08] MEDS: TAMSULOSIN 0.4 MG CAP PO SCH (20:52)
[2020-03-08] MEDS: diphenhydrAMINE HCL 25 MG CAP PO PRN (20:52)
[2020-03-08] MEDS: SIMVASTATIN 20 MG TAB PO SCH (20:53)
[2020-03-08] MEDS: ACETAMINOPHEN 325 MG TAB PO PRN (20:53)
[2020-03-09] MEDS: LEVOTHYROXINE SODIUM 0.1 MG TAB PO SCH (05:54)
[2020-03-09] MEDS: ENOXAPARIN SODIUM 40 MG/0.4 ML SYG SUBCU SCH (08:47)
[2020-03-09] MEDS: CETIRIZINE HCL 10 MG TAB PO SCH (08:47)
[2020-03-09] MEDS: ASPIRIN (CHEWABLE) 81 MG TAB PO SCH (08:47)
[2020-03-09] MEDS: GABAPENTIN 300 MG CAP PO SCH ×3 (08:47→22:27)
[2020-03-09] MEDS: guaiFENesin ER TAB 600 MG TAB PO SCH ×2 (08:47→22:27)
[2020-03-09] MEDS: METOPROLOL TARTRATE 50 MG TAB PO SCH (08:47)
[2020-03-09] MEDS: NIACIN 500 MG TAB PO SCH ×2 (08:47→22:27)
[2020-03-09] MEDS: LISINOPRIL 10 MG TAB PO SCH ×2 (08:47→22:27)
[2020-03-09] MEDS: metFORMIN HCL 500 MG TAB PO SCH ×2 (08:47→22:27)
[2020-03-09] MEDS ORDERED: levoFLOXacin 500MG IV 100 ML IVPB ONE (08:54)
[2020-03-09] MEDS: levoFLOXacin 500MG IV 500 MG in PREMIX BAG 1 BAG IVPB SCH (08:55)
--- NOTE | 2020-03-09 11:56 | PCM.PROG ---
PCM Subjective - Review of Systems Events since last encounter: Patient with no compliants, but states he still feels weak. He had some diarrhea yesterday, which was negative for C-diff. General: States: Fatigue. Denies: Chills Pulmonary: Denies: Dyspnea, Cough Cardiovascular: Denies: Chest Pain Gastrointestinal: States: Diarrhea. Denies: Nausea, Vomiting Musculoskeletal: States: Leg Pain Objective - Exam Vitals and I&O: Vital Signs Temp 97.4 F L 03/09/20 05:00 Pulse 78 03/09/20 09:00 Resp 20 03/09/20 09:00 BP 166/80 03/09/20 09:00 Pulse Ox 94 L 03/09/20 09:00 Intake & Output 03/08/20 03/09/20 03/09/20 18:59 06:59 18:59 Intake Total 700 390 130 Output Total 800 1450 200 Balance -100 -1060 -70 Weight 251 lb 293 lb 12.8 oz Intake: IV 10 Saline Flush Syringe 3 ml 10 IV PRN PRN Rx#:[id number] Oral 700 390 120 Output: Urine 800 1450 200 Other: # Voids 400 General: Alert, Oriented x3, No acute distress HEENT: Atraumatic, PERRLA, EOMI Neck: Supple, No JVD Lungs: Clear to auscultation, Normal air movement Cardiovascular: Regular rate, Normal S1, Normal S2 Abdomen: Normal bowel sounds, Soft, Other - obese Extremities: Other - LLE edema, cellulitis stepwise improving. Currently wrapped in dressing. No drainage through the dressing. Neurological: Normal speech Psych/Mental Status: Mental status NL - Results Results: Laboratory Results WBC 13.2 K/mm3 (4.8-10.8) H 03/09/20 05:15 RBC 4.48 M/mm3 (4.70-6.10) L 03/09/20 05:15 Hgb 13.4 gm/dL (14.0-18.0) L 03/09/20 05:15 Hct 39.9 % (42.0-52.0) L 03/09/20 05:15 MCV 89.2 fl (80.0-94.0) 03/09/20 05:15 MCH 29.9 pg (27.0-31.0) 03/09/20 05:15 MCHC 33.6 g/dL (33.0-37.0) 03/09/20 05:15 RDW 15.4 % (11.5-14.5) H 03/09/20 05:15 Plt Count 283 K/mm3 (130-400) 03/09/20 05:15 MPV 7.8 fl (7.40-10.4) 03/09/20 05:15 Absolute Neuts (auto) 10.50 K/uL (1.8-6.8) H 03/09/20 05:15 Absolute Lymphs (auto) 1.70 K/uL (1.0-3.4) 03/09/20 05:15 Absolute Monos (auto) 0.90 K/uL (0.2-0.8) H 03/09/20 05:15 Absolute Eos (auto) 0.20 K/uL (0.0-0.4) 03/09/20 05:15 Absolute Basos (auto) 0.10 K/uL (0.0-0.1) 03/09/20 05:15 Neutrophils % 78.9 % (42.0-78.0) H 03/09/20 05:15 Lymphocytes % 12.5 % (20.0-50.0) L 03/09/20 05:15 Monocytes % 6.6 % (2.0-9.0) 03/09/20 05:15 Eosinophils % 1.4 % (1.0-5.0) 03/09/20 05:15 Basophils % 0.6 % (0.0-2.0) 03/09/20 05:15 PT 10.6 SECONDS (9.0-10.9) 03/03/20 15:04 INR 1.07 (0.9-1.15) 03/03/20 15:04 PTT (SP) 33.7 SECONDS (21.8-31.6) H 03/03/20 15:04 Sodium 138 mmol/L (135-145) 03/09/20 05:15 Potassium 4.1 mmol/L (3.6-5.0) 03/09/20 05:15 Chloride 106 mmol/L (101-111) 03/09/20 05:15 Carbon Dioxide 22 mmol/L (21-31) 03/09/20 05:15 Anion Gap 14.1 (12-18) 03/09/20 05:15 BUN 25 mg/dL (7-18) H 03/09/20 05:15 Creatinine 1.32 mg/dL (0.6-1.3) H 03/09/20 05:15 BUN/Creatinine Ratio 18.9 (-20) 03/09/20 05:15 POC Glucose 124 mg/dL (70-105) H 03/09/20 11:30 Random Glucose 164 mg/dL (70-105) H 03/09/20 05:15 Serum Osmolality 283.7 mOsm/L (275-295) 03/09/20 05:15 Lactic Acid 1.2 mmol/L (0.5-2.2) 03/03/20 17:10 Calcium 8.4 mg/dL (8.4-10.2) 03/09/20 05:15 Magnesium 1.8 mg/dL (1.8-2.5) 03/08/20 05:15 Total Bilirubin 0.6 mg/dL (0.2-1.0) 03/08/20 05:15 Direct Bilirubin 0.3 mg/dL (0-0.2) H 03/03/20 15:04 Indirect Bilirubin 0.9 mg/dL (0.2-0.8) H 03/03/20 15:04 AST 96 IU/L (10-42) H 03/08/20 05:15 ALT 136 IU/L (10-60) H 03/08/20 05:15 Alkaline Phosphatase 71 IU/L (42-121) 03/08/20 05:15 Creatine Kinase 81 IU/L (38-174) 03/03/20 15:04 CK-MB (CK-2) 4.5 ng/mL (0.0-4.4) H 03/03/20 15:04 CK-MB (CK-2) % Not Reportable 03/03/20 15:04 Troponin I 0.05 ng/mL (0.01-0.05) 03/03/20 15:04 C-Reactive Protein 22.2 mg/dL (0-1.0) H* D 03/06/20 05:37 B-Natriuretic Peptide 67.8 pg/ml (0-100) 03/03/20 15:04 Serum Total Protein 6.7 gm/dL (6.4-8.2) 03/08/20 05:15 Albumin 2.6 g/dl (3.2-5.5) L 03/08/20 05:15 Globulin 4.1 gm/dL (2.3-3.5) H 03/08/20 05:15 Albumin/Globulin Ratio 0.6 (1.1-1.9) L 03/08/20 05:15 Urine Color Yellow (Yellow) 03/03/20 17:10 Urine Appearance Cloudy (Clear) 03/03/20 17:10 Urine pH 5.5 (4.5-7.8) 03/03/20 17:10 Ur Specific [employer] 1.025 (1.005-1.030) 03/03/20 17:10 Urine Protein 100 mg/dL H 03/03/20 17:10 Urine Glucose (UA) Negative mg/dL (Negative) 03/03/20 17:10 Urine Ketones Trace mg/dL (NEGATIVE) 03/03/20 17:10 Urine Blood Moderate (Negative) H 03/03/20 17:10 Urine Nitrite Negative 03/03/20 17:10 Urine Bilirubin Small (NEGATIVE) H 03/03/20 17:10 Urine Urobilinogen 0.2 mg/dL (0.2-1.0) 03/03/20 17:10 Ur Leukocyte Esterase Negative (Negative) 03/03/20 17:10 Urine RBC 5-10 /hpf H 03/03/20 17:10 Urine WBC 0-1 /hpf 03/03/20 17:10 Ur Epithelial Cells 0-1 /hpf 03/03/20 17:10 Amorphous Sediment 3+ 03/03/20 17:10 Urine Bacteria 1+ 03/03/20 17:10 Urine Mucus Small 03/03/20 17:10 Vancomycin Trough 11.0 ug/mL (5.0-10.0) H 03/05/20 20:24 Assessment/Plan - Problem(s) (1) Cellulitis of left lower extremity Plan: Will continue ceftriaxone, and I have added levofloxacin to see if it will help with faster resolution of the cellulitis. Continue wound care. (2) Streptococcus dysgalactiae bacteremia Plan: Will continue ceftriaxone and levofloxacin. Will need total of 14 days, will anticipate outpatient infusion. (3) Diabetes mellitus type 2 in obese Plan: Well controlled on metformin. (4) Hypertension Plan: Continue home medications. Controlled at this time. (5) LION (obstructive sleep apnea) Plan: Continue CPAP at HS.
[2020-03-09] MEDS: traMADol HCL 50 MG TAB PO PRN (12:45)
[2020-03-09] MEDS: ONDANSETRON INJ 4 MG/2 ML VIAL IV PRN (16:41)
[2020-03-09] MEDS: cefTRIAXone SODIUM 1 GM in SODIUM CHL 0.9% 50ML MIN-BAG+ 50 ML IVPB SCH (16:41)
[2020-03-09] MEDS: PROMETHAZINE HCL INJ 25 MG in SODIUM CHLORIDE 0.9% 50ML 50 ML IVPB PRN (19:33)
[2020-03-09] MEDS: SIMVASTATIN 20 MG TAB PO SCH (22:27)
[2020-03-09] MEDS: TAMSULOSIN 0.4 MG CAP PO SCH (22:27)
[2020-03-10] MEDS: IV SET AND CAP CHANGE INJ INJ SCH (00:19)
[2020-03-10] MEDS: PROMETHAZINE HCL INJ 25 MG in SODIUM CHLORIDE 0.9% 50ML 50 ML IVPB PRN (01:01)
[2020-03-10] MEDS: LEVOTHYROXINE SODIUM 0.1 MG TAB PO SCH (06:06)
[2020-03-10] MEDS: ONDANSETRON INJ 4 MG/2 ML VIAL IV PRN (07:47)
[2020-03-10] MEDS: metFORMIN HCL 500 MG TAB PO SCH (08:24)
[2020-03-10] MEDS: METOPROLOL TARTRATE 50 MG TAB PO SCH (08:24)
[2020-03-10] MEDS: ASPIRIN (CHEWABLE) 81 MG TAB PO SCH (08:24)
[2020-03-10] MEDS: ENOXAPARIN SODIUM 40 MG/0.4 ML SYG SUBCU SCH (08:24)
[2020-03-10] MEDS: GABAPENTIN 300 MG CAP PO SCH (08:24)
[2020-03-10] MEDS: CETIRIZINE HCL 10 MG TAB PO SCH (08:25)
[2020-03-10] MEDS: guaiFENesin ER TAB 600 MG TAB PO SCH (08:25)
[2020-03-10] MEDS: NIACIN 500 MG TAB PO SCH (08:25)
[2020-03-10] MEDS: levoFLOXacin 500MG IV 500 MG in PREMIX BAG 1 BAG IVPB SCH (08:25)
[2020-03-10] MEDS: LISINOPRIL 10 MG TAB PO SCH (08:28)
[2020-03-10 11:17] VITALS: O2SAT 95
--- NOTE | 2020-03-10 13:24 | DS ---
SUPERVISING PHYSICIAN: Carlos Scott MD ADMISSION DIAGNOSIS: 1. Left lower extremity cellulitis. 2. Right sided chest wall pain. 3. Acute kidney injury. 4. Diabetes mellitus, type 2. 5. Hypertension. 6. Obstructive sleep apnea on CPAP. DISCHARGE DIAGNOSIS: 1. Left lower extremity cellulitis. 2. Streptococcal dysgalactiae bacteremia. 3. Diabetes mellitus, type 2. 4. Hypertension. 5. Obstructive sleep apnea. HOSPITAL COURSE: This is a 69-year-old male patient who came to the hospital on 03/03/20 with right shoulder pain and left lower extremity blistering and weeping. Apparently he fell on the Sunday prior to admission going to the bathroom and landed on his right side. Additionally, he developed some redness and swelling on the left lower extremity as well. He also had some nausea and vomiting due to what he states he might have gotten food poisoning from [id number]. He was at the walk-in clinic in [place] and referred to the Emergency Room. Chest x-ray was pretty much unremarkable. Labs showed elevated white count of 15,000. Creatinine was elevated at 1.71. CRP was elevated at 30. Shoulder x-ray was negative for any fractures, but given the cellulitis, the patient was referred for admission for IV antibiotics. He was placed on Rocephin and vancomycin and his microbiology actually grew out Streptococcal dysgalactiae on both blood cultures. Infectious Disease was contacted by me on Sunday regarding the patient and I was instructed to discontinue the vancomycin and continue the Rocephin for a total of 2 weeks given the bacteremia. The cellulitis really was not a whole lot better until we really started to wrap the lower extremity. He had some blisters that popped, but no obvious new drainage. Over the last couple of the days, the erythema has gotten considerably better. Given the improvement clinically, the patient can be discharged today in stable condition. He will require 7 more days of Rocephin and I actually added Levaquin as well. The addition of the Levaquin seems to have helped quite a bit. The patient is primarily sedentary. [facility] and we are trying to get him established with Dr. Morse at [facility]. His diet is going to be a diabetic diet. Activity is to increase as tolerated. His will be instructed on how to wrap his leg when she arrives to pick him up. I will write orders for 7 more days for antibiotics to be given IV here as well. [facility][id number] [facility]
[2020-03-10 13:51] VITALS: BP 144/88; TEMP 98.4
== END 2020-03-10 15:00 | disposition home or self-care (01) | DRG 603 ==
LOC: ER 13:50 → MS 17:57 → OBSVTOIN 17:57
PROVIDERS: ADMIT Nurse Practitioner Family; ATTEND Nurse Practitioner
DX: L03.116 Cellulitis of left lower limb (principal); N17.9 Acute kidney failure, unspecified; R78.81 Bacteremia; E86.0 Dehydration; R07.89 Other chest pain; E11.9 Type 2 diabetes mellitus without complications; I10 Essential (primary) hypertension; G47.33 Obstructive sleep apnea (adult) (pediatric); E66.01 Morbid (severe) obesity due to excess calories; Z88.5 Allergy status to narcotic agent; Z68.35 Body mass index [BMI] 35.0-35.9, adult

== ENCOUNTER 2020-03-18 10:30 | Inpatient (IN) | payer MEDICARE, OTHER ==
--- NOTE | 2020-03-18 10:47 | ED.PDOC ---
History of Present Illness - General Time Seen by Provider: 03/18/20 10:33 Source: patient, RN notes reviewed, Vital Signs reviewed, family, old records Exam Limitations: no limitations - History of Present Illness Initial Comments: 69 yo M with hx of DM presents with worsening wound infection. Patient was admitted to hospital 2 weeks ago discharged 8 days ago. Was sent home on levaquin. Finished last antibiotics yesterday. Last night noticed worsening redness, spreading up his leg, warm and increase pain. Orginally fell 2 weeks ago which was what caused the break in skin. Patient also noted he has been having black stools since starting antibiotics therapy. no palpations, shortness of breath or tachycardia. no syncope or dizziness. no prior hx of GI bleed. States has had a normal colonoscopy one year ago. Timing/Duration: yesterday Severity: moderate Location: extremities Allergies/Adverse Reactions: Allergies Morphine Allergy (Verified 03/03/20 15:11) Home Medications: Ambulatory Orders Tramadol HCl 50 mg PO Q8HR PRN #20 tab 02/21/19 Aspirin [Aspirin 81 Low Dose] 81 mg PO DAILY 03/05/20 Cetirizine HCl [Zyrtec] 10 mg PO DAILY 03/05/20 Cholecalciferol [Vitamin D3] 125 mcg PO DAILY 03/05/20 Cinnamon 1,000 mg PO BID 03/05/20 Cyanocobalamin [B-12] 500 mcg PO DAILY 03/05/20 Gabapentin 300 mg PO TID 03/05/20 Glimepiride 1 mg PO DAILY 03/05/20 Rskgfrqlayp-Vlordtaykur-Mbbtbf [Move Free Joint Health Ad] 1 tab PO DAILY 03/05/20 Guaifenesin 400 mg PO BID 03/05/20 Ibuprofen 800 mg PO TID PRN 03/05/20 Levothyroxine Sodium 100 mcg PO DAILY 03/05/20 Lisinopril 10 mg PO BID 03/05/20 Metformin HCl [Fortamet] 1,000 mg PO BID 03/05/20 Metoprolol Tartrate 100 mg PO DAILY 03/05/20 Multiple Vitamin [Multi Vitamin Mens] 1 tab PO DAILY 03/05/20 Niacin 500 mg PO BID 03/05/20 Simvastatin 20 mg PO BEDTIME 03/05/20 Tamsulosin HCl 0.4 mg PO BEDTIME 03/05/20 cefTRIAXone SODIUM [Rocephin] 1 gm IVPB Q24H vial 03/10/20 levoFLOXacin 500MG IV [Levaquin 500MG IV] 500 mg IVPB Q24H bag 03/10/20 Past Medical History (General) - Patient Medical History Hx Seizures: No Hx Stroke: No Hx Asthma: No Hx of COPD: No Hx Congestive Heart Failure: No Hx Pacemaker: No Hx Hypertension: Yes Hx Diabetes: Yes Hx MRSA: No - Vaccination History Hx Influenza Vaccination: Yes Hx Pneumococcal Vaccination: Yes - Social History Hx Tobacco Use: No Hx Alcohol Use: No Hx Substance Use: No Hx Physical Abuse: No Hx Emotional Abuse: No Family Medical History - Family History Father Family History: Unknown Living Status: Unknown Physical Exam - Physical Exam General Appearance: Alert, Comfortable, No apparent distress, Well Developed, Well Groomed, Well Hydrated, Well Nourished Eyes, Ears, Nose, Throat Exam: PERRL/EOMI, normal ENT inspection Neck: non-tender, full range of motion Cardiovascular/Chest: normal peripheral pulses, regular rate, rhythm, no gallop Respiratory: chest non-tender, lungs clear, normal breath sounds, no respiratory distress, no accessory muscle use Gastrointestinal/Abdominal: normal bowel sounds, non tender, soft, no organomegaly, no pulsatile mass, other - normal rectal tone, borwn stool. Back Exam: normal inspection, no CVA tenderness Extremity: normal range of motion, swelling, other - large healing scab with 3+ pitting edema, erythema and warm to touch extending from lateral knee to lower ankle. large scabs on anterior and medial calf. serous oozing noted. Skin Problem Location: lower extremities Skin Character: drainage, erythema, warm Progress - Progress Progress: 03/18/20 13:45 stool was too formed to get c. diff culture. Tib/fib shows no gas in tissue, soft tissue swelling. CT shows: Mild fecal impaction in the rectal colon. Mild wall thickening and fat stranding to the right of the antrum to first portion of the duodenum could represent inflammation. No abnormal fluid collection or free intraperitoneal air is identified. Mild colon diverticulosis without CT evidence of diverticulitis. No bowel obstruction or inflammatory changes. Stable right and decreased left nonobstructing nephrolithiasis is again seen. 03/18/20 14:22 - Results/Orders Results/Orders: /lgpdfkr-tjtzhaooqv-glxywwcl-score 10, oakland score 18. 03/18/20 11:01 BLOOD CULTURE Stat Laboratory Results WBC 11.5 K/mm3 (4.8-10.8) H 03/18/20 11:01 RBC 3.35 M/mm3 (4.70-6.10) L 03/18/20 11:01 Hgb 9.9 gm/dL (14.0-18.0) L 03/18/20 11:01 Hct 29.7 % (42.0-52.0) L 03/18/20 11:01 MCV 88.6 fl (80.0-94.0) 03/18/20 11:01 MCH 29.6 pg (27.0-31.0) 03/18/20 11:01 MCHC 33.5 g/dL (33.0-37.0) 03/18/20 11:01 RDW 14.7 % (11.5-14.5) H 03/18/20 11:01 Plt Count 462 K/mm3 (130-400) H 03/18/20 11:01 MPV 7.2 fl (7.40-10.4) L 03/18/20 11:01 Absolute Neuts (auto) 8.70 K/uL (1.8-6.8) H 03/18/20 11:01 Absolute Lymphs (auto) 1.50 K/uL (1.0-3.4) 03/18/20 11:01 Absolute Monos (auto) 1.10 K/uL (0.2-0.8) H 03/18/20 11:01 Absolute Eos (auto) 0.10 K/uL (0.0-0.4) 03/18/20 11:01 Absolute Basos (auto) 0.10 K/uL (0.0-0.1) 03/18/20 11:01 Neutrophils % 75.3 % (42.0-78.0) 03/18/20 11:01 Lymphocytes % 12.9 % (20.0-50.0) L 03/18/20 11:01 Monocytes % 9.5 % (2.0-9.0) H 03/18/20 11:01 Eosinophils % 1.1 % (1.0-5.0) 03/18/20 11:01 Basophils % 1.2 % (0.0-2.0) 03/18/20 11:01 PT 10.8 SECONDS (9.0-10.9) 03/18/20 11:01 INR 1.09 (0.9-1.15) 03/18/20 11:01 PTT (SP) 28.4 SECONDS (21.8-31.6) 03/18/20 11:01 Sodium 141 mmol/L (135-145) 03/18/20 11:01 Potassium 4.8 mmol/L (3.6-5.0) 03/18/20 11:01 Chloride 110 mmol/L (101-111) 03/18/20 11:01 Carbon Dioxide 19 mmol/L (21-31) L 03/18/20 11:01 Anion Gap 16.8 (12-18) 03/18/20 11:01 BUN 57 mg/dL (7-18) H 03/18/20 11:01 Creatinine 2.53 mg/dL (0.6-1.3) H 03/18/20 11:01 BUN/Creatinine Ratio 22.5 (10-20) H 03/18/20 11:01 Random Glucose 116 mg/dL (70-105) H 03/18/20 11:01 Serum Osmolality 298.1 mOsm/L (275-295) H 03/18/20 11:01 Calcium 8.7 mg/dL (8.4-10.2) 03/18/20 11:01 Total Bilirubin 0.5 mg/dL (0.2-1.0) 03/18/20 11:01 AST 53 IU/L (10-42) H 03/18/20 11:01 ALT 113 IU/L (10-60) H 03/18/20 11:01 Alkaline Phosphatase 60 IU/L (42-121) 03/18/20 11:01 C-Reactive Protein 8.4 mg/dL (0-1.0) H* 03/18/20 11:01 Serum Total Protein 7.2 gm/dL (6.4-8.2) 03/18/20 11:01 Albumin 2.9 g/dl (3.2-5.5) L 03/18/20 11:01 Globulin 4.3 gm/dL (2.3-3.5) H 03/18/20 11:01 Albumin/Globulin Ratio 0.7 (1.1-1.9) L 03/18/20 11:01 Stool Occult Blood Positive (NEGATIVE) H 03/18/20 11:10 repeat HGb 10.4. he data reviewed when caring for this patient included: nurse notes, prior records, etc. The history and assessments from nurses notes were reviewed and considered, and the patient's home medication list was also reviewed and considered. My assessment and the results of testing completed here in the ED were discussed with the patient/family. All questions were answered, and they express understanding of my assessment and the plan.patient transferred to floor in stable condition. - EKG/XRAY/CT XRAY: tib/fib - swelling, no crepitus, Departure - Departure Clinical Impression: Cellulitis Qualifiers: Site of cellulitis: extremity Site of cellulitis of extremity: lower extremity Laterality: left Qualified Code(s): L03.116 - Cellulitis of left lower limb GI bleed Qualifiers: GI bleed type/associated pathology: unspecified gastrointestinal hemorrhage type Qualified Code(s): K92.2 - Gastrointestinal hemorrhage, unspecified ICD-10 Supporting Text: failed outpatient management of cellulitis. Time of Disposition: 14:25 Disposition: Admit Patient Home Medications: Ambulatory Orders Tramadol HCl 50 mg PO Q8HR PRN #20 tab 02/21/19 Aspirin [Aspirin 81 Low Dose] 81 mg PO DAILY 03/05/20 Cetirizine HCl [Zyrtec] 10 mg PO DAILY 03/05/20 Cholecalciferol [Vitamin D3] 125 mcg PO DAILY 03/05/20 Cinnamon 1,000 mg PO BID 03/05/20 Cyanocobalamin [B-12] 500 mcg PO DAILY 03/05/20 Gabapentin 300 mg PO TID 03/05/20 Glimepiride 1 mg PO DAILY 03/05/20 Mukhdlisctb-Kygpmbgkpme-Qkkxma [Move Free Joint Health Ad] 1 tab PO DAILY 03/05 Guaifenesin 400 mg PO BID 03/05/20 Ibuprofen 800 mg PO TID PRN 03/05/20 Levothyroxine Sodium 100 mcg PO DAILY 03/05/20 Lisinopril 10 mg PO BID 03/05/20 Metformin HCl [Fortamet] 1,000 mg PO BID 03/05/20 Metoprolol Tartrate 100 mg PO DAILY 03/05/20 Multiple Vitamin [Multi Vitamin Mens] 1 tab PO DAILY 03/05/20 Niacin 500 mg PO BID 03/05/20 Simvastatin 20 mg PO BEDTIME 03/05/20 Tamsulosin HCl 0.4 mg PO BEDTIME 03/05/20 cefTRIAXone SODIUM [Rocephin] 1 gm IVPB Q24H vial 03/10/20 levoFLOXacin 500MG IV [Levaquin 500MG IV] 500 mg IVPB Q24H bag 03/10/20
--- NOTE | 2020-03-18 11:23 | RAD ---
EXAM DESCRIPTION: Tibia/Fibula,Right CLINICAL HISTORY: wound infection COMPARISON: March 04, 2020 IMPRESSION: 2 views of the left tibia and fibula show no acute fracture, focal bone destruction, or joint dislocation. Diffuse soft tissue swelling and edema is again seen. No radiopaque foreign body or soft tissue emphysema is identified. Electronically signed by: Pepe Robles MD 03/18/2020 11:21 AM CDT [id number]
[2020-03-18] MEDS ORDERED: PANTOPRAZOLE SODIUM IV 40 MG VIAL IV ONE (11:43)
[2020-03-18] MEDS ORDERED: cefTRIAXone SODIUM 1 GM in SODIUM CHL 0.9% 50ML MIN-BAG+ 50 ML IVPB ONE (12:05)
--- NOTE | 2020-03-18 13:24 | CT ---
EXAM DESCRIPTION: Abdoment/Pelvis w/o Contrast CLINICAL HISTORY: diarrhea COMPARISON: February 21, 2019 TECHNIQUE: Noncontrast transaxial CT images of the abdomen and pelvis are obtained. This exam was performed according to our departmental dose-optimization program, which includes automated exposure control, adjustment of the mA and/or kV according to patient size and/or use of iterative reconstruction technique . FINDINGS: Visualized lung bases show mild interstitial scarring or atelectasis. The heart is enlarged. Trace pericardial effusion. Noncontrast appearance of the liver, spleen, pancreas, left adrenal gland, and gallbladder is unremarkable. Moderate scattered calcifications of the arterial vasculature. Fat attenuation lipoma or adenoma the right adrenal gland measures 2 cm stable from previous. 3.5 cm cortical cyst of the posterior upper pole right kidney with 1.2 cm cortical cyst of the lower pole. Nonobstructing 6 mm calcification of the lower pole calyx right kidney is stable. Tiny 1 to 2 mm nonobstructing punctate calcifications in the lower pole the left kidney are seen smaller than previous exam. No ureteral calcification or obstruction. Urinary bladder unremarkable. Mild prostate calcifications. The appendix is normal. Stomach poorly distended. Mild wall thickening and adjacent fat stranding in the antrum to first portion of the duodenum.. No small bowel obstruction or bowel wall thickening. Normal volume of air and stool throughout the colon. Mild scattered diverticuli of the descending to sigmoid colon are seen without associated inflammatory changes or fluid collections. Mild stool filled distention of the rectum measuring 7.9 cm without rectal wall thickening or perirectal inflammation. No aggressive bony lesions. Moderate to severe spondylitic changes of the spine are seen. Small fat-containing umbilical hernia seen. IMPRESSION: Mild fecal impaction in the rectal colon. Mild wall thickening and fat stranding to the right of the antrum to first portion of the duodenum could represent inflammation. No abnormal fluid collection or free intraperitoneal air is identified. Mild colon diverticulosis without CT evidence of diverticulitis. No bowel obstruction or inflammatory changes. Stable right and decreased left nonobstructing nephrolithiasis is again seen. Electronically signed by: Pepe Robles MD 03/18/2020 1:23 PM CDT [facility]
--- NOTE | 2020-03-18 13:30 | HP ---
SUPERVISING PHYSICIAN: Demetris Sun MD CHIEF COMPLAINT: Left lower extremity cellulitis with dark stools. HISTORY OF PRESENT ILLNESS: Mr. Garcia is a 69 year-old male patient who had recently been treated for cellulitis in his left lower extremity. He is diabetic and was treated with outpatient medications and had just finished his last dose day before yesterday which was Levaquin and then noted this morning his leg was significantly swollen and reddened. He does note he fell about 2 weeks ago, he feels like the skin was broken and the infection started. Apparently, he was doing well at home but he is concerned about the black stools and the fact that he had just had antibiotics and he felt like the pain and appearance of the leg had worsened. He denies any previous GI bleeds, in fact, he had a colonoscopy last year and was not found to have any significant abnormalities. Vital signs in the Emergency Room were showing he was stable with a temperature 99.1, pulse 80, blood pressure 138/84, oxygen saturation 97% on room air. His lab did show he had a mild white count of 11,500, hemoglobin had dropped to 9.9, he showed to be discharged from the hospital on 03/10 with hemoglobin being 13.5, hematocrit 39.8 at that time. He was checked for occult blood in the Emergency Room and found to be positive for stool. Dr. Villareal at that point requested the patient be admitted for having failed outpatient treatment plan with the Levaquin and possibly dehydrated. After a short observation period in the Emergency Room to insure that he wasn't dropping his hemoglobin significantly, he was admitted for further treatment and evaluation of developing cellulitis. PAST MEDICAL HISTORY: 1. Diabetes mellitus, type 2. 2. Hypertension. 3. Sleep apnea on CPAP. PAST SURGICAL HISTORY: 1. Neck surgery as a young man. 2. Multiple kidney stones with back surgery. CURRENT MEDICATIONS: Awaiting updated list of medications. He just finished a 14-day course of Levaquin as an outpatient. ALLERGIES: Morphine. FAMILY HISTORY: Noncontributory. 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 He is . He does not have a history of smoking or using tobacco, drinking alcohol or using illicit drugs. REVIEW OF SYSTEMS: CONSTITUTIONAL: Denies general malaise. fevers, chills or weakness. HEENT: Negative for sore throats, earaches, nasal congestion, vision changes. RESPIRATORY: Negative for coughing, wheezing or shortness of breath. GASTROINTESTINAL: No reported nausea, vomiting, diarrhea, constipation or abdominal pain. GENITOURINARY: Denies dysuria, hematuria, polyuria. SKIN: Other than a rash on his left lower extremity, he denied any other changes. NEUROLOGIC: Positive for generalized weakness. Denies ataxia, seizures, headaches, tremors, other focal deficits. HEMATOLOGIC: Negative for easy bruising, unexplained bleeding or transfusion reactions. PHYSICAL EXAMINATION: VITAL SIGNS: Temperature 98.4, pulse 71, blood pressure initially 144/88, respirations 18. GENERAL: The patient is resting comfortably, no obvious distress. HEENT: Tympanic membranes clear bilaterally. Oropharynx is pink, moist without any lesions. NECK: Supple, nontender with full range of motion. No jugular venous distention. RESPIRATORY: Lungs clear to auscultation bilaterally without any obvious rhonchi, wheezes or rales. CARDIOVASCULAR: Regular rate and rhythm. ABDOMEN: Obese, soft, nontender. Positive bowel sounds. EXTREMITIES: The left lower extremity shows large scabs, 3+ pitting edema, erythema and is warm to touch, extends from lateral knee to lower ankle with the largest scab noted to the lateral aspect of the leg. SKIN: As noted above. NEUROLOGIC: He is alert and oriented x3. Cranial nerves II-XII are grossly intact. Facial features are symmetrical. Extraocular movements are within normal limits. There is no nystagmus noted. LABORATORY: White count 11,500, hemoglobin initially 9.9, hematocrit 29.7. Repeat at 3 hours was hemoglobin 10.4, hematocrit 30.0. Platelet count 462,000, differential does not show initially a left shift. Coagulation studies showed normal PT/PTT. Chemistries normal electrolytes, BUN 57, creatinine 2.53, glucose 116. Liver functions show an elevated AST at 53, ALT 113, C-reactive protein 8.4. RADIOLOGY: X-ray of left lower extremity with left lower Doppler ultrasound showed no acute findings. Abdominal/pelvic CT was also completed without contrast and per radiology interpretation showed mild fecal impaction in the rectal colon with some mild wall thickening and fat stranding to the right anterior first portion of the duodenum which could represent inflammation, no abdominal fluid collection or free intraperitoneal air was identified. Mild colon diverticulosis without CT evidence of diverticulitis, no bowel obstruction or inflammatory changes. Stable decreased left nonobstructing nephrolithiasis again seen. ASSESSMENT: 1. Cellulitis of the left lower extremity, having failed treatment with oral antibiotics in the form of Levaquin. 2. Diabetes mellitus type 2. 3. Acute renal insufficiency likely secondary to antibiotics with some prerenal azotemia. 3. Hypertension. 4. Sleep apnea on CPAP. PLAN: Will place the patient in observation, start him on vancomycin and Rocephin. I anticipate he will stay at least one to two days. Possibly discharge tomorrow, discussed getting PICC line in because he more than likely going to require longer term antibiotics. He is to continue his home medications once those have been updated and verified. He will be on DVT prophylaxis per protocol. He will be on PPI per protocol. He will be on sliding insulin scale per protocol. Hopefully will be able to discharge within the next 24-48 hours. Until then, we will continue to monitor and treat as needed. #[id number] [facility]
[2020-03-18] MEDS ORDERED: levoFLOXacin 500MG IV 500 MG in PREMIX BAG 1 BAG IVPB ONE (13:37)
--- NOTE | 2020-03-18 13:58 | RAD ---
EXAM DESCRIPTION: Tibia/Fibula,Right CLINICAL HISTORY: wound infection COMPARISON: March 04, 2020 IMPRESSION: 2 views of the left tibia and fibula show no acute fracture, focal bone destruction, or joint dislocation. Diffuse soft tissue swelling and edema is again seen. No radiopaque foreign body or soft tissue emphysema is identified. Electronically signed by: Pepe Robles MD 03/18/2020 11:21 AM CDT . [facility]
--- NOTE | 2020-03-18 14:53 | US ---
EXAM DESCRIPTION: Venous,Lower Extremity LT: ULTRASOUND. CLINICAL HISTORY: LLE edema COMPARISON: None Available. TECHNIQUE: Mclaughlin-scale and doppler sonographic evaluation of the deep venous system of the left lower extremity. FINDINGS: Doppler evaluation shows normal color flow and normal phasicity and augmentation of the left common femoral vein, left femoral vein, popliteal vein, left greater saphenous vein, junction with the CFV. Also normal color flow and normal phasicity and augmentation of the peroneal, and posterior tibial vein. The left lower extremity deep veins were completely compressible; normal occlusion with transducer pressure. Mclaughlin-scale survey showed no echogenic thrombus within these veins. IMPRESSION: 1. Duplex ultrasound evaluation of the left lower extremity deep venous system showing no evidence of thrombosis. Electronically signed by: Richardson García MD 03/18/2020 2:52 PM CDT
[2020-03-18] MEDS ORDERED: VANCOMYCIN HCL INJ 1,000 MG, VANCOMYCIN HCL INJ 500 MG in SODIUM CHLORIDE 0.9% 250ML 25... IVPB SCH (17:00)
[2020-03-18] MEDS ORDERED: VANCOMYCIN PER PHARMACY IVPB SCH (17:00)
[2020-03-18] MEDS ORDERED: SODIUM CHLORIDE 0.9% (FLUSH) 10 ML SYG IV PRN (18:06)
[2020-03-18] MEDS ORDERED: ACETAMINOPHEN 325 MG TAB PO PRN (18:06)
[2020-03-18] MEDS ORDERED: ONDANSETRON INJ 4 MG/2 ML VIAL IV PRN (18:06)
[2020-03-18] MEDS ORDERED: GLUCAGON INJ 1 MG VIAL SUBCU PRN (18:11)
[2020-03-18] MEDS ORDERED: DEXTROSE 50% 25 GM/50 ML SYG IV PRN (18:11)
[2020-03-18] MEDS: IV SET AND CAP CHANGE INJ INJ SCH (18:25)
[2020-03-18] MEDS ORDERED: LISINOPRIL 10 MG TAB ONE (20:16)
[2020-03-18] MEDS ORDERED: NIACIN 500 MG TAB ONE (20:16)
[2020-03-18] MEDS: TAMSULOSIN 0.4 MG CAP PO SCH (20:35)
[2020-03-18] MEDS: NIACIN 500 MG PO SCH (20:35)
[2020-03-18] MEDS: GABAPENTIN 300 MG CAP PO SCH (20:35)
[2020-03-18] MEDS: NON-FORMULARY MEDICATION 1 EA MIS (Lisinopril [Lisinopril] 10 MG) PO SCH (20:35)
[2020-03-18] MEDS ORDERED: GUAIFENESIN 400 MG PO SCH (21:00)
[2020-03-18] MEDS ORDERED: SIMVASTATIN 20 MG PO SCH (21:00)
[2020-03-18] MEDS ORDERED: CINNAMON 1000 MG PO SCH (21:00)
[2020-03-18] MEDS: INSULIN LISPRO 100 UNITS/ML PEN SUBCU SCH (21:13)
[2020-03-18] MEDS: SODIUM CHLORIDE 0.45% 1000ML 1,000 ML IVS PRN (21:15)
[2020-03-19] MEDS ORDERED: SODIUM CHL 0.9% 50ML MIN-BAG+ 50 ML IVPB ONE (01:11)
[2020-03-19] MEDS ORDERED: cefTRIAXone SODIUM 1 GM VIAL ONE ×2 (01:11→15:43)
--- NOTE | 2020-03-19 02:36 | RAD ---
EXAM DESCRIPTION: Chest,1 View 03/19/2020 2:32 AM CDT CLINICAL HISTORY: 69 years, Male, Confirm placement of PICC line COMPARISON: 03/03/2020 FINDINGS: Single view of the chest was obtained portable. Prior films were compared. There has been interval placement of a right upper extremity PICC line tip of the catheter within the cavoatrial junction at the level of T8 in good position with no evidence for pneumothorax. The cardiomediastinal silhouette demonstrate to be unremarkable. Lung volume is decreased. Suboptimal evaluation of the left costophrenic angle was not included in the field of imaging. No definitive significant pleural effusion and/or consolidations. The rest of the soft tissue and bony structures demonstrate to be unremarkable. IMPRESSION: RIGHT UPPER EXTREMITY PICC LINE IN GOOD POSITION. DECREASED LUNG VOLUME. NO DEFINITIVE FOCAL AREAS OF ACUTE AIRSPACE DISEASE. Electronically signed by: Osbaldo Carballo MD 03/19/2020 2:34 AM CDT
[2020-03-19] MEDS: cefTRIAXone SODIUM 1 GM in SODIUM CHL 0.9% 50ML MIN-BAG+ 50 ML IVPB SCH ×2 (02:52→15:51)
[2020-03-19] MEDS: SODIUM CHLORIDE 0.45% 1000ML 1,000 ML IVS PRN (05:31)
[2020-03-19] MEDS: INSULIN LISPRO 100 UNITS/ML PEN SUBCU SCH ×4 (08:09→21:00)
[2020-03-19] MEDS: GABAPENTIN 300 MG CAP PO SCH ×3 (08:42→20:19)
[2020-03-19] MEDS: ASPIRIN (CHEWABLE) 81 MG TAB PO SCH (08:43)
[2020-03-19] MEDS: CYANOCOBALAMIN 1,000 MCG TAB PO SCH (08:43)
[2020-03-19] MEDS: CETIRIZINE HCL 10 MG TAB PO SCH (08:43)
[2020-03-19] MEDS ORDERED: LISINOPRIL 10 MG TAB ONE (08:53)
[2020-03-19] MEDS: METOPROLOL TARTRATE 50 MG TAB PO SCH (08:57)
[2020-03-19] MEDS: NIACIN 500 MG PO SCH (08:58)
[2020-03-19] MEDS: LEVOTHYROXINE SODIUM 0.1 MG TAB PO SCH (08:59)
[2020-03-19] MEDS: NON-FORMULARY MEDICATION 1 EA MIS (Lisinopril [Lisinopril] 10 MG) PO SCH (08:59)
[2020-03-19] MEDS: MULTIPLE VITAMIN 1 EA TAB PO SCH (09:00)
[2020-03-19] MEDS ORDERED: NON-FORMULARY MEDICATION 1 EA MIS (Glimepiride [Glimepiride] 1 MG) PO SCH (09:00)
[2020-03-19] MEDS ORDERED: CHOLECALCIFEROL 125 MCG PO SCH (09:00)
[2020-03-19] MEDS: NIACIN 500 MG TAB PO SCH ×2 (09:09→20:19)
[2020-03-19] MEDS: LISINOPRIL 10 MG TAB PO SCH ×2 (09:09→20:20)
[2020-03-19] MEDS ORDERED: SODIUM CHL 0.9% 100ML MINI-BAG 100 ML IVPB ONE (15:44)
--- NOTE | 2020-03-19 16:33 | PN ---
SUPERVISING PHYSICIAN: Demetris Sun MD DATE: 03/19/20 SUBJECTIVE: The patient is sitting up in bed. He has no complaints except for the leg pain but it has improved. OBJECTIVE: VITAL SIGNS: Temperature 98.4, heart rate 84, blood pressure 153/77, respiratory rate 20, oxygen saturation 98% on room air. CHEST: Essentially clear to auscultation bilaterally. CARDIAC: Regular rate and rhythm. ABDOMEN: Soft, nondistended, non-tender. Bowel sounds are positive. EXTREMITIES: Left lower leg has large scabbed areas circumferential over his whole lower leg. There is some edema and erythema, although it has improved since the previous markings. It is warm to touch. His pedal pulses are palpable bilaterally. NEUROLOGIC: He is awake, alert, and oriented x3. LABORATORY: WBC 8.9, hemoglobin 9.7, hematocrit 28.6. Blood sugars have run between 68 and 117. Electrolytes are basically within normal limits with the exception of chloride is slightly high at 113. His BUN is 52, creatinine 2.07. Stool for occult blood is positive. Preliminary blood cultures show no growth after hours. Chest x-ray shows right upper extremity PICC line in good position, decreased lung volume noted, definitive focal area of air space disease. All other labs and films have been reviewed via the EMR. ASSESSMENT: 1. Cellulitis of the left lower extremity having failed treatment with IV antibiotics in the form of Levaquin. 2. Diabetes mellitus type 2. 3. Acute renal insufficiency. 3. Hypertension. 4. Sleep apnea on CPAP. PLAN: We will continue present supportive care. He will need a GI consultation on discharge. He will also most likely stay until Sunday until we can contact Dr. Butler, Infectious Disease, for appropriate IV antibiotic treatment since he has failed outpatient treatment. He still has a PICC line in place, and he had done out patient IV antibiotic therapy prior to this admission with IV Levaquin. Also, we will monitor his cultures. I have ordered lab for in the morning. Monitor his H&H closely as well. I have held on his Lovenox for now due to his unstable hemoglobin and hematocrit/. If his hemoglobin and hematocrit remain stable, I can start that tomorrow, otherwise, he will have SCDs for DVT prophylaxis as well as I have ordered frequent ambulation and we will continue to monitor him closely and follow as needed. #[id number] [facility]
[2020-03-19] MEDS ORDERED: BIFIDOBACTERIUM INFANTIS 4 MG CAP ONE (18:59)
[2020-03-19] MEDS: TAMSULOSIN 0.4 MG CAP PO SCH (20:19)
[2020-03-19] MEDS: BIFIDOBACTERIUM INFANTIS 4 MG CAP PO SCH (20:19)
[2020-03-20] MEDS: cefTRIAXone SODIUM 1 GM in SODIUM CHL 0.9% 50ML MIN-BAG+ 50 ML IVPB SCH ×2 (00:57→13:04)
[2020-03-20] MEDS: VANCOMYCIN HCL INJ 1,750 MG in SODIUM CHLORIDE 0.9% 500ML 500 ML IVPB SCH (04:32)
[2020-03-20] MEDS: LEVOTHYROXINE SODIUM 0.1 MG TAB PO SCH (06:01)
[2020-03-20] MEDS: INSULIN LISPRO 100 UNITS/ML PEN SUBCU SCH ×4 (08:57→20:50)
[2020-03-20] MEDS: GABAPENTIN 300 MG CAP PO SCH ×3 (08:58→20:33)
[2020-03-20] MEDS: NIACIN 500 MG TAB PO SCH ×2 (08:58→20:33)
[2020-03-20] MEDS: MULTIPLE VITAMIN 1 EA TAB PO SCH (08:58)
[2020-03-20] MEDS: BIFIDOBACTERIUM INFANTIS 4 MG CAP PO SCH ×2 (08:58→20:33)
[2020-03-20] MEDS: LISINOPRIL 10 MG TAB PO SCH ×2 (08:58→20:33)
[2020-03-20] MEDS: CYANOCOBALAMIN 1,000 MCG TAB PO SCH (08:58)
[2020-03-20] MEDS: CETIRIZINE HCL 10 MG TAB PO SCH (08:58)
[2020-03-20] MEDS: ASPIRIN (CHEWABLE) 81 MG TAB PO SCH (08:58)
[2020-03-20] MEDS: METOPROLOL TARTRATE 50 MG TAB PO SCH (08:59)
[2020-03-20] MEDS ORDERED: MAGNESIUM SULFATE PREMIX 2GM 2 GM in PREMIX BAG 1 BAG IVPB ONE (09:31)
[2020-03-20] MEDS ORDERED: MAGNESIUM SULFATE PREMIX 2GM 50 ML IVPB ONE (10:55)
--- NOTE | 2020-03-20 16:15 | PN ---
SUPERVISING PHYSICIAN: Demetris Sun MD DATE: 03/20/20 SUBJECTIVE: The patient is sitting up on the side of the bed. His leg is much improved and he says it hurts much less than it has for several weeks. He does want to get up and walk around as much as possible and I have encouraged him to do so. He denies chest pain, nausea or vomiting. OBJECTIVE: VITAL SIGNS: Temperature 98.3, heart rate 71, blood pressure 143/76, respiratory rate 20, oxygen saturation 94% on room air. CHEST: Essentially clear to auscultation bilaterally. CARDIAC: Regular rate and rhythm. EXTREMITIES: Left lower extremity is much less swollen than yesterday. The redness has diminished and there is no heat noted on palpation. He does continue to have very dried skin as well as the multiple ecchymotic with scabbing area over his leg but again, is much improved with minimal erythema. Bilateral pedal pulses are palpable +2. NEUROLOGIC: He is awake, alert, and oriented x3. LABORATORY: WBC 8.8, hemoglobin 9.2, hematocrit 26.6. Electrolytes are basically within normal limits with the exception of magnesium is low at 1.6. Preliminary blood cultures show no growth after 48 hours. All other labs and films have been reviewed via the EMR. ASSESSMENT: 1. Cellulitis of the left lower extremity having failed treatment with IV antibiotics with IV Levaquin. 2. Diabetes mellitus type 2. 3. Acute renal insufficiency. 3. Hypertension. 4. Sleep apnea on CPAP. 5. Anemia with positive stool guaiacs. PLAN: We will continue present supportive care. He will need a GI consultation on discharge. We will continue with his present antibiotics, his leg is improving greatly and he did fail on IV Levaquin previously. On Sunday, we will contact Dr. Butler, Infectious Disease, to get her input on recommendations treatment as well as length of treatment. I will also monitor his H&H closely as it dropped slightly overnight and I have encouraged him to get up and walk around. I have not started him on any Lovenox for now, he does have SCDs for that. I have encouraged good pulmonary hygiene as well as frequent ambulation and will monitor him closely and follow as needed. #[id number] [facility]
[2020-03-20] MEDS: TAMSULOSIN 0.4 MG CAP PO SCH (20:33)
[2020-03-20] MEDS ORDERED: CHLORHEXIDINE GLUCONATE 4 % 15 ML UD TOP ONE (21:03)
[2020-03-21] MEDS: cefTRIAXone SODIUM 1 GM in SODIUM CHL 0.9% 50ML MIN-BAG+ 50 ML IVPB SCH ×2 (00:25→13:56)
[2020-03-21] MEDS: LEVOTHYROXINE SODIUM 0.1 MG TAB PO SCH (05:46)
[2020-03-21] MEDS ORDERED: CHLORHEXIDINE GLUCONATE 4 % 15 ML UD TOP ONE (06:03)
[2020-03-21] MEDS: INSULIN LISPRO 100 UNITS/ML PEN SUBCU SCH ×4 (07:57→21:23)
[2020-03-21] MEDS: BIFIDOBACTERIUM INFANTIS 4 MG CAP PO SCH ×2 (09:01→20:44)
[2020-03-21] MEDS: NIACIN 500 MG TAB PO SCH ×2 (09:01→20:45)
[2020-03-21] MEDS: CETIRIZINE HCL 10 MG TAB PO SCH (09:01)
[2020-03-21] MEDS: GABAPENTIN 300 MG CAP PO SCH ×3 (09:01→20:45)
[2020-03-21] MEDS: CYANOCOBALAMIN 1,000 MCG TAB PO SCH (09:01)
[2020-03-21] MEDS: ASPIRIN (CHEWABLE) 81 MG TAB PO SCH (09:01)
[2020-03-21] MEDS: LISINOPRIL 10 MG TAB PO SCH ×2 (09:02→20:45)
[2020-03-21] MEDS: METOPROLOL TARTRATE 50 MG TAB PO SCH (09:02)
[2020-03-21] MEDS: MULTIPLE VITAMIN 1 EA TAB PO SCH (09:02)
[2020-03-21] MEDS ORDERED: MAGNESIUM SULFATE PREMIX 2GM 2 GM in PREMIX BAG 1 BAG IVPB ONE (10:01)
[2020-03-21] MEDS: CHLORHEXIDINE GLUC 4% 15ML 45 ML, WATER FOR IRRIGATION 1,000 ML TOP SCH ×2 (13:57)
[2020-03-21] MEDS ORDERED: MAGNESIUM SULFATE PREMIX 2GM 50 ML IVPB ONE (14:33)
[2020-03-21] MEDS: VANCOMYCIN HCL INJ 1,750 MG in SODIUM CHLORIDE 0.9% 500ML 500 ML IVPB SCH (17:49)
--- NOTE | 2020-03-21 18:47 | PN ---
SUPERVISING PHYSICIAN: Demetris Sun MD DATE: 03/21/20 SUBJECTIVE: The patient is sitting up in bed. He says his leg feels much better. There is much less pain in it. He feels the swelling has gone down. OBJECTIVE: VITAL SIGNS: Temperature 97.9, heart rate 82, blood pressure 135/84, respiratory rate 18. O2 saturation 92% on room air. CHEST: Essentially clear to auscultation bilaterally. CARDIAC: Regular rate and rhythm. EXTREMITIES: The left leg continues to have the dry patches with areas of scabbing on it. The redness is diminished from yesterday. There is no heat and is not longer tender to palpation. There is just minimal swelling throughout the leg. It is much improved according to the markings that were previously on his leg. NEUROLOGIC: He is awake, alert, and oriented x3. LABORATORY: WBC 9, hemoglobin 8.7, hematocrit 25.4. Electrolytes are basically within normal limits with the exception of magnesium is slightly low at 1.7. BUN 41, creatinine 1.38. Preliminary blood cultures show no growth after 3 days. All other labs and films have been reviewed via the EMR. ASSESSMENT: 1. Cellulitis of the left lower extremity having failed treatment with IV antibiotics with IV Levaquin. 2. Diabetes mellitus, type 2. 3. Acute renal insufficiency. 3. Hypertension. 4. Sleep apnea on CPAP. 5. Anemia with positive stool guaiacs. PLAN: We will continue present supportive care. I have got the okay to change from him from an observation to inpatient. He is progressing very well on his current antibiotics including vancomycin. We most likely will need to touch base with Dr. Butler, Infectious Disease, to get her recommendations on continued IV antibiotic therapy and length of treatment. I have given him some magnesium supplementation and we will recheck his labs in the morning. #[id number] [facility]
[2020-03-21] MEDS: IV SET AND CAP CHANGE INJ INJ SCH (19:26)
[2020-03-21] MEDS: TAMSULOSIN 0.4 MG CAP PO SCH (20:45)
[2020-03-22] MEDS: cefTRIAXone SODIUM 1 GM in SODIUM CHL 0.9% 50ML MIN-BAG+ 50 ML IVPB SCH (00:47)
[2020-03-22] MEDS: LEVOTHYROXINE SODIUM 0.1 MG TAB PO SCH (06:00)
[2020-03-22] MEDS: INSULIN LISPRO 100 UNITS/ML PEN SUBCU SCH (07:08)
[2020-03-22] MEDS ORDERED: ACETAMINOPHEN 325 MG TAB PO ONE (08:16)
[2020-03-22] MEDS ORDERED: FUROSEMIDE INJ 40 MG/4 ML VIAL IV ONE (08:16)
[2020-03-22] MEDS ORDERED: diphenhydrAMINE HCL 50 MG/ML VIAL IV ONE (08:16)
[2020-03-22] MEDS ORDERED: SODIUM CHLORIDE 0.9% 500ML 500 ML IVS SCH (08:30)
[2020-03-22] MEDS: CYANOCOBALAMIN 1,000 MCG TAB PO SCH (09:56)
[2020-03-22] MEDS: GABAPENTIN 300 MG CAP PO SCH (09:57)
[2020-03-22] MEDS: NIACIN 500 MG TAB PO SCH (09:57)
[2020-03-22] MEDS: ASPIRIN (CHEWABLE) 81 MG TAB PO SCH (09:58)
[2020-03-22] MEDS: CETIRIZINE HCL 10 MG TAB PO SCH (09:58)
[2020-03-22] MEDS: METOPROLOL TARTRATE 50 MG TAB PO SCH (09:58)
[2020-03-22] MEDS: BIFIDOBACTERIUM INFANTIS 4 MG CAP PO SCH (09:58)
[2020-03-22] MEDS: MULTIPLE VITAMIN 1 EA TAB PO SCH (09:59)
[2020-03-22] MEDS: LISINOPRIL 10 MG TAB PO SCH (09:59)
[2020-03-22] MEDS: CHLORHEXIDINE GLUC 4% 15ML 45 ML, WATER FOR IRRIGATION 1,000 ML TOP SCH ×2 (10:00)
[2020-03-22 10:43] VITALS: TEMP 97.5
[2020-03-22 11:20] VITALS: BP 131/74; O2SAT 97
--- NOTE | 2020-03-23 10:52 | DS ---
SUPERVISING PHYSICIAN: Ascencion Cruz MD ADMISSION DIAGNOSIS: 1. Cellulitis of the left lower extremity, having failed treatment with oral antibiotics in the form of Levaquin. 2. Diabetes mellitus type 2. 3. Acute renal insufficiency likely secondary to antibiotics with some prerenal azotemia. 3. Hypertension. 4. Sleep apnea on CPAP. DISCHARGE DIAGNOSIS: 1. Lower gastrointestinal bleed requiring transfusion for acute bleed and transfusion requirements. 2. Cellulitis of the left lower extremity having failed treatment, showing improvement on IV vancomycin. 3. Diabetes mellitus, type 2. 4. Acute renal insufficiency, stable. 5. Hypertension, stable. 6. Sleep apnea on CPAP. REASON FOR HOSPITALIZATION: Mr. Garcia is a 69 year-old male patient who had recently been treated for cellulitis in his left lower extremity. He is diabetic and was treated with outpatient medications and had just finished his last dose day before yesterday which was Levaquin and then noted this morning his leg was significantly swollen and reddened. He does note he fell about 2 weeks ago, he feels like the skin was broken and the infection started. Apparently, he was doing well at home but he is concerned about the black stools and the fact that he had just had antibiotics and he felt like the pain and appearance of the leg had worsened. He denies any previous GI bleeds, in fact, he had a colonoscopy last year and was not found to have any significant abnormalities. Vital signs in the Emergency Room were showing he was stable with a temperature 99.1, pulse 80, blood pressure 138/84, oxygen saturation 97% on room air. His lab did show he had a mild white count of 11,500, hemoglobin had dropped to 9.9, he showed to be discharged from the hospital on 03/10 with hemoglobin being 13.5, hematocrit 39.8 at that time. He was checked for occult blood in the Emergency Room and found to be positive for stool. Dr. Villareal at that point requested the patient be admitted for having failed outpatient treatment plan with the Levaquin and possibly dehydrated. After a short observation period in the Emergency Room to insure that he wasn't dropping his hemoglobin significantly, he was admitted for further treatment and evaluation of developing cellulitis. LABORATORY: Initial hemoglobin on admission was 9.9 and hematocrit 29.7. Prior to admission in the ER, repeat was 10.4 and 30.0. On the morning of discharge on 03/21/20, hemoglobin was 6.6 and hematocrit 19.2. Platelet count 366,000, white count 10,500 without a left shift. Coagulation studies were normal, PT/PTT. Chemistries showed normal electrolytes on discharge with creatinine 1.64. Blood sugars ranged between 156 and 236. Calcium 8.3, magnesium 1.8. Liver functions showed AST that was normal, ALT a little elevated at 70, alkaline phosphatase low at 40. C-reactive protein on admission was 8.4. He had stool occult blood that was positive. MICROBIOLOGY: COVID swab was negative. Blood cultures are negative after 4 days. RADIOLOGY: Tib-fib x-rays showed no acute findings. Lower extremity Doppler study on the left lower leg showed no evidence of thrombus. HOSPITAL COURSE: Mr. Garcia was admitted for left lower extremity cellulitis having failed outpatient treatment plan. He was started on vancomycin and Rocephin. There was a question of GI bleed initially in the ER, but his hemoglobin and hematocrit were actually showing improvement prior to admission, but his H&Hs were followed. Given that he was still having some dark stools and H&H was showing slow decline, initially he was not given Lovenox on this admission. On the morning of transfer, the patient started having some large dark stools with some blood-tinge to them and H&H indicated a significant drop to hemoglobin 6.6 and hematocrit 19.2. The patient's vital signs were actually stable. On discharge, he was afebrile at 97.5, pulse 84, blood pressure 131/74, respirations 17, saturation 97% on room air. Given that he showed a significant drop in his hemoglobin and hematocrit with obvious lower GI bleed, he was transferred for higher level of care for GI services not available at [facility]. After talking to [facility] in [place], he was accepted in transfer with Dr. Griffin accepting. A unit of blood was started prior to transfer by ground. He was found to be stable enough to transfer for further care. PLAN: Mr. Garcia was discharged and transferred to [facility] in [place], [place], for GI services not available at [facility]. He will need to followup with his primary care provider in the [facility] once discharged. He had a PICC line placed for longitudinal float operator therapy with antibiotics and will need further addressing of this at [facility] prior to discharge. CONDITION ON DISCHARGE: Guarded, but stable. DISPOSITION: The patient was transferred to [facility] via ground ambulance. #[id number] [facility]
== END 2020-03-22 11:22 | disposition short-term general hospital (02) | DRG 603 ==
LOC: ER 10:30 → OBSVTOIN 13:29 → UNDOADMOB 13:29 → MS 13:29
PROVIDERS: ADMIT Family Medicine; ATTEND Nurse Practitioner Family
PROC: 30233N1 Transfusion of Nonautologous Red Blood Cells into Peripheral Vein, Percutaneous Approach (ICD-10-PCS; principal; 2020-03-22)
DX: L03.116 Cellulitis of left lower limb (principal); K92.1 Melena; Z68.41 Body mass index [BMI] 40.0-44.9, adult; E11.9 Type 2 diabetes mellitus without complications; N28.9 Disorder of kidney and ureter, unspecified; I10 Essential (primary) hypertension; G47.30 Sleep apnea, unspecified; E86.0 Dehydration; D64.9 Anemia, unspecified; Z88.5 Allergy status to narcotic agent; E66.9 Obesity, unspecified; Z79.891 Long term (current) use of opiate analgesic; Z79.82 Long term (current) use of aspirin; Z79.84 Long term (current) use of oral hypoglycemic drugs; Z79.1 Long term (current) use of non-steroidal anti-inflammatories (NSAID); Z79.899 Other long term (current) drug therapy